=== PATIENT | male | born 1955 | race Caucasian/White ===

== ENCOUNTER 2017-07-11 18:21 | Emergency (ER) | payer OTHER ==
--- NOTE | 2017-07-11 19:30 | C.PDOC ---
History Of Present Illness The patient presents to the ED for evaluation of left knee pain which has been worsening over the last couple days. Patient denies fever, chills, direct trauma /injury to the affected area. Time Seen by Provider: 07/11/17 19:29 Chief Complaint (Nursing): Lower Extremity Problem/Injury History Per: Patient History/Exam Limitations: no limitations Onset/Duration Of Symptoms: Days (2) Current Symptoms Are (Timing): Worse Severity: Mild Pain Scale Rating Of: 3 Recent travel outside of the [place]: No Additional History Per: Patient - Knee Description Of Injury: denies: Fell, Struck With Object, Struck Against Object, Twisted, Laceration Past Medical History Reviewed: Historical Data, Nursing Documentation, Vital Signs Vital Signs: Last Vital Signs Temp 98.9 F 07/11/17 18:50 Pulse 70 07/11/17 18:50 Resp 18 07/11/17 18:50 BP 145/90 07/11/17 18:50 Pulse Ox 99 07/11/17 20:27 - Medical History PMH: HTN Surgical History: No Surg Hx Family History: States: Unknown Family Hx - Social History Hx Tobacco Use: No Hx Alcohol Use: No Hx Substance Use: No - Immunization History Hx Tetanus Toxoid Vaccination: No Hx Influenza Vaccination: No Hx Pneumococcal Vaccination: No Review Of Systems Constitutional: Negative for: Fever, Chills Cardiovascular: Negative for: Chest Pain, Palpitations Respiratory: Negative for: Cough, Shortness of Breath Musculoskeletal: Positive for: Other (left knee pain ) Skin: Negative for: Rash, Lesions, Jaundice, Bruising Neurological: Negative for: Weakness, Numbness Physical Exam - Physical Exam Appears: Non-toxic, No Acute Distress Skin: Warm, Dry Extremity: No Normal ROM (limited in left knee secondary to pain ), Tenderness ( left knee ), No Calf Tenderness, Capillary Refill (less than 2 seconds ), No Deformity, Swelling (left knee ), Other (left knee: generalized erythema with small areas of exudates present. positive ballottement) Extremity: Bilateral: Atraumatic Pulses: Left Dorsalis Pedis: Normal, Right Dorsalis Pedis: Normal Neurological/Psych: Oriented x3, Normal Speech, Normal Cognition Gait: Steady ED Course And Treatment - Laboratory Results Result Diagrams: 07/11/17 19:54 07/11/17 19:54 O2 Sat by Pulse Oximetry: 99 (on RA) Pulse Ox Interpretation: Normal Progress Note: labs ordered and reviewed. Patient received Cleocin IVP, Vancomycin IVP, and IV Fluids. Reevaluation Time: 23:09 Reassessment Condition: Improved Medical Decision Making Medical Decision Making: Upon provider reevaluation patient is feeling better, is medically stable, and requires no further treatment in the ED at this time. Patient will be discharged home with Rx for bactrim ds. Counseling was provided and all questions were answered regarding diagnosis and need for follow up with the referred clinic. There is agreement to discharge plan. Return if symptoms persist or worsen. Disposition Counseled Patient/Family Regarding: Studies Performed, Diagnosis, Need For Followup, Rx Given - Disposition Referrals: [facility] [Outside] [facility] [Outside] Disposition: HOME/ ROUTINE Disposition Time: 19:30 Condition: FAIR Additional Instructions: Please return if the redness of the knee spreads beyond the marked line Prescriptions: Sulfamethoxazole/Trimethoprim [Bactrim DS 800 mg-160 mg] 1 tab PO BID #14 tab Instructions: Cellulitis (DC) Forms: [employer] (Kinyarwanda) Print Language: STATELESS - Clinical Impression Clinical Impression: Cellulitis of knee, left - Scribe Statement The provider has reviewed the documentation as recorded by the Scribe (Essie Corrigan) Provider Attestation: All medical record entries made by the Scribe were at my direction and personally dictated by me. I have reviewed the chart and agree that the record accurately reflects my personal performance of the history, physical exam, medical decision making, and the department course for this patient. I have also personally directed, reviewed, and agree with the discharge instructions and disposition.
[2017-07-11] MEDS ORDERED: Sodium Chloride 0.9% 1,000 ML IV ONE (19:46)
[2017-07-11] MEDS ORDERED: Clindamycin 300 MG in Sodium Chloride 0.9% 50 ML IVPB STA (19:47)
[2017-07-11] MEDS ORDERED: Clindamycin 600mg/50ml NS 600 MG/50 ML BAG IVPB ONE (19:56)
[2017-07-11 19:57] LABS: BASO % 0.9 % (0.0-2.0); EOS # 0.3 K/uL (0.0-0.7); EOS % 7.6 % (0.0-4.0); HEMATOCRIT 41.6 % (35.0-51.0); LYMPH # 1.4 K/uL (1.0-4.3); LYMPH % 32.5 % (20.0-40.0); MEAN CELL VOLUME 81.1 fL (80.0-94.0); MEAN CORPUSCULAR HEMOGLOBIN 27.1 pg (27.0-31.0); MEAN CORPUSCULAR HGB CONC 33.4 g/dL (33.0-37.0); MEAN PLATELET VOLUME 9.2 fL (7.2-11.7); MONO # 0.6 K/uL (0.0-0.8); MONO % 13.3 % (0.0-10.0); RED CELL DISTRIBUTION WIDTH 13.9 % (11.5-14.5); WHITE BLOOD COUNT 4.4 K/uL (4.8-10.8)
[2017-07-11 20:10] LABS: CHLORIDE 104 mmol/L (98-107); SODIUM 140 mmol/L (132-148)
[2017-07-11 20:11] LABS: POTASSIUM 4.6 mmol/L (3.6-5.2)
[2017-07-11 20:13] LABS: ALB/GLOB RATIO 1.3 (1.0-2.1); ALKALINE PHOSPHATASE 59 U/L (38-126); AST/SGOT 44 U/L (17-59); BILIRUBIN,TOTAL 0.7 mg/dL (0.2-1.3); BLOOD UREA NITROGEN 15 mg/dL (9-20); CARBON DIOXIDE 23 mmol/L (22-30); GFR AFRICAN-AMERICAN > 60; TOTAL PROTEIN 7.8 g/dL (6.3-8.3)
[2017-07-11 20:14] LABS: ALT/SGPT 44 U/L (21-72); CALCIUM 8.9 mg/dl (8.6-10.4); GLUCOSE,RANDOM 72 mg/dL (75-110)
[2017-07-11 20:31] LABS: VENOUS BLOOD GAS BASE EXCESS 0.8 mmol/L (0.0-2.0); VENOUS BLOOD GAS PCO2 46 mmHg (40-60); VENOUS BLOOD PH 7.37 (7.32-7.43)
[2017-07-11] MEDS ORDERED: Vancomycin 1 GM 1 GM/250 ML BAG IVPB ONE (21:05)
[2017-07-11] MEDS ORDERED: Iohexol 300 100 ML IJ ONE (21:14)
[2017-07-11 21:41] LABS: RBC URINE < 1 /hpf (0-3); URINE BACTERIA RARE (<OCC); URINE BILIRUBIN NEGATIVE (NEGATIVE); URINE BLOOD NEGATIVE (NEGATIVE); URINE COLOR Yellow (YELLOW); URINE GLUCOSE (UA) NORMAL (Normal); URINE KETONE NEGATIVE (NEGATIVE); URINE LEUKOCYTE ESTERASE NEG Leu/uL (Negative); URINE PROTEIN NEGATIVE (NEGATIVE); URINE UROBILINOGEN NORMAL mg/dL (0.2-1.0); WBC URINE 2 /hpf (0-5)
--- NOTE | 2017-07-11 22:53 | CT ---
EXAM: CT Left Lower Extremity With Intravenous Contrast, Knee EXAM DATE/TIME: 07/11/2017 8:45 PM CLINICAL HISTORY: 61 years old, male; Signs and symptoms; Cellulitis and edema and swelling, leg or foot; Yes, it is localized; Knee; Left; Additional info: Left knee, swelling, possible abscess TECHNIQUE: Axial computed tomography images of the left knee with intravenous contrast. All CT scans at this facility use one or more dose reduction techniques, viz.: automated exposure control; ma/kV adjustment per patient size (including targeted exams where dose is matched to indication; i.e. head); or iterative reconstruction technique. Coronal and sagittal reformatted images were created and reviewed. CONTRAST: 100 mL of omnipaque 300 administered intravenously. COMPARISON: There are no prior studies for comparison. FINDINGS: Bones/joints: There is a small effusion in the left knee joint. There are no fractures or dislocations. There is no focal bone destruction. There are degenerative changes with small osteophytes. Soft tissues: There is skin thickening greatest anteriorly at the left knee. There is subcutaneous edema and phlegmon. There is no drainable abscess. There is no deep tissue infection. There is a popliteal cyst which measures 1.3 x 1.3 x 6 cm. Vasculature: Vascular structures are unremarkable. IMPRESSION: Cellulitis with subcutaneous edema and phlegmon, no drainable abscess; small popliteal cyst; degenerative change
[2017-07-11 23:18] VITALS: BP 169/92; PULSE 68; RESP 20; TEMP 98.2; O2SAT 95
== END 2017-07-11 23:19 | disposition home or self-care (01) ==
LOC: C.ER 18:21
DX: L03.116 Cellulitis of left lower limb (principal)
CPT/HCPCS: 73701; 80053; 81001; 82803; 85025; 87040; 96365; 96367; 99284; J7040; J7050; Q9967

== ENCOUNTER 2017-07-13 07:54 | Inpatient (IN) | payer MEDICAID, OTHER ==
[2017-07-13] MEDS ORDERED: Sodium Chloride 0.9% 1,000 ML IV ONE (08:58)
--- NOTE | 2017-07-13 09:23 | C.PDOC ---
History Of Present Illness 61 y/o male with PMHx of HTN presents to ED for re-evaluation of left knee redness, swelling, blisters gradually developed for past week. Pt states that he fell 7 days ago, scraping his left knee. Pt was seen here on 07/11/17 due to same complaints. Pt sts , received Rx: Bactrim without improvement in sx. Pt sts , noted blisters spread over Left knee. Pt admits, able to bear weight/ ambulate without difficulty. Pt denies fever, chills, direct trauma/injury to affected area, headache, dizziness, CP, SOB, B/L calf pain, denies deformity, weakness, sensory or vascular deficits to B/L LEs, denies any other associated symptoms at this time. Ambulate to ED for evaluation, not in any apparent distress. Time Seen by Provider: 07/13/17 08:29 Chief Complaint (Nursing): Abnormal Skin Integrity History Per: Patient History/Exam Limitations: no limitations Onset/Duration Of Symptoms: Days Current Symptoms Are (Timing): Still Present Location Of Injury: Left: Knee, Anterior: Knee Quality Of Symptoms: Painful, Swollen Recent travel outside of the [place]: No Additional History Per: Family Past Medical History Reviewed: Historical Data, Nursing Documentation, Vital Signs Vital Signs: Last Vital Signs Temp 97.8 F 07/17/17 07:00 Pulse 61 07/17/17 07:00 Resp 20 07/17/17 07:00 BP 131/86 07/17/17 07:00 Pulse Ox 98 07/17/17 07:00 - Medical History PMH: HTN Family History: States: Unknown Family Hx - Social History Hx Tobacco Use: No Hx Alcohol Use: No Hx Substance Use: No - Immunization History Hx Tetanus Toxoid Vaccination: No Hx Influenza Vaccination: No Hx Pneumococcal Vaccination: No Review Of Systems Except As Marked, All Systems Reviewed And Found Negative. Constitutional: Negative for: Fever, Chills Cardiovascular: Negative for: Chest Pain, Palpitations Respiratory: Negative for: Cough, Shortness of Breath Gastrointestinal: Negative for: Nausea, Vomiting, Abdominal Pain Musculoskeletal: Positive for: Leg Pain (left knee pain) Skin: Positive for: Other (blisters to left knee). Negative for: Rash Neurological: Negative for: Weakness, Numbness, Headache, Dizziness Physical Exam - Physical Exam Appears: Non-toxic, No Acute Distress Skin: Warm, Dry, Other (pustule with yellow drainge over the anterior aspect of left knee that is warm to touch, diffuse erythema) Head: Normacephalic Eye(s): bilateral: PERRL Nose: No Flaring Oral Mucosa: Moist, No Drooling Throat: No Erythema Neck: Supple Chest: Symmetrical Cardiovascular: Rhythm Regular, No Murmur Respiratory: No Decreased Breath Sounds, No Accessory Muscle Use, No Rales, No Rhonchi, No Stridor, No Wheezing Gastrointestinal/Abdominal: Soft, No Tenderness, No Distention, No Guarding Back: No CVA Tenderness Extremity: Normal ROM (FROM of Left knee without difficulty.), Tenderness (mild over anterior aspect of left knee), No Calf Tenderness (B/L), Capillary Refill ( <2 sec.), No Deformity Pulses: Left Dorsalis Pedis: Normal, Right Dorsalis Pedis: Normal Neurological/Psych: Oriented x3, Normal Speech, Normal Motor, Normal Sensation, Normal Reflexes ED Course And Treatment - Laboratory Results Result Diagrams: 07/17/17 06:53 07/17/17 06:53 O2 Sat by Pulse Oximetry: 99 (on RA) Pulse Ox Interpretation: Normal - Other Rad Left knee X-Ray: Interpreted by Me, Viewed By Me Interpretation: (+) mild DJD, no acute fx or dislocation Progress Note: Blood work, UA, left knee x-ray ordered and reviewed. Blood and urine culture ordered. Pt was given Vancomycin IVPB. Wound cx ( aspirate one of knee pustule) sent to lab. On re-eval, pt remained without changed. Blood work review, imaging (+) Mild DJD, no acute fx or dislocation, no effusion. Pt fell outpt treatment for knee cellulitis. Case discussed with ED attending and OBS admission recommend with Dx: Knee cellulitis r/o septic joint. Case discussed with hospitalist and admission arranged w/ortho consult of . 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 - Scribe Statement The provider has reviewed the documentation as recorded by the Scribe Clark Corrigan All medical record entries made by the Scribe were at my direction and personally dictated by me. I have reviewed the chart and agree that the record accurately reflects my personal performance of the history, physical exam, medical decision making, and the department course for this patient. I have also personally directed, reviewed, and agree with the discharge instructions and disposition.
[2017-07-13 10:11] LABS: BASO # 0.1 K/uL (0.0-0.2); BASO % 1.1 % (0.0-2.0); EOS # 0.3 K/uL (0.0-0.7); EOS % 7.1 % (0.0-4.0); HEMATOCRIT 45.7 % (35.0-51.0); LYMPH # 1.3 K/uL (1.0-4.3); LYMPH % 28.6 % (20.0-40.0); MEAN CELL VOLUME 80.6 fL (80.0-94.0); MEAN CORPUSCULAR HEMOGLOBIN 27.1 pg (27.0-31.0); MEAN CORPUSCULAR HGB CONC 33.6 g/dL (33.0-37.0); MEAN PLATELET VOLUME 8.4 fL (7.2-11.7); MONO # 0.5 K/uL (0.0-0.8); MONO % 12.1 % (0.0-10.0); NRBC % 0.1 % (0.0-2.0); RED CELL DISTRIBUTION WIDTH 14.2 % (11.5-14.5); WHITE BLOOD COUNT 4.4 K/uL (4.8-10.8)
[2017-07-13 10:22] LABS: CHLORIDE 101 mmol/L (98-107); POTASSIUM 4.5 mmol/L (3.6-5.2); SODIUM 140 mmol/L (132-148)
[2017-07-13 10:24] LABS: GFR AFRICAN-AMERICAN > 60
[2017-07-13 10:25] LABS: BLOOD UREA NITROGEN 12 mg/dL (9-20); CALCIUM 9.7 mg/dl (8.6-10.4); CARBON DIOXIDE 21 mmol/L (22-30); GLUCOSE,RANDOM 79 mg/dL (75-110)
[2017-07-13 10:39] LABS: URINE BILIRUBIN NEGATIVE (NEGATIVE); URINE BLOOD NEGATIVE (NEGATIVE); URINE COLOR Yellow (YELLOW); URINE GLUCOSE (UA) NORMAL (Normal); URINE KETONE NEGATIVE (NEGATIVE); URINE LEUKOCYTE ESTERASE NEG Leu/uL (Negative); URINE PROTEIN NEGATIVE (NEGATIVE); URINE UROBILINOGEN NORMAL mg/dL (0.2-1.0); WBC URINE < 1 /hpf (0-5)
[2017-07-13] MEDS ORDERED: Sodium Chloride 0.9% 1,000 ML ONE (10:44)
[2017-07-13] MEDS ORDERED: Vancomycin 1 GM 1 GM/250 ML BAG IVPB ONE (10:45)
--- NOTE | 2017-07-13 11:33 | RAD ---
Left knee three views History: Pain. Comparison: None available. Findings: Prominent lobulated and radiopaque soft tissue densities and or lesions seen projecting over the soft tissues at the level of the patella and extending superiorly. Moderate lateral compartment joint space narrowing of the femorotibial joint space with subchondral sclerosis and osteophytosis. Spurring of the tibial spines. Mild patellofemoral compartment joint space narrowing. Small suprapatellar joint effusion. Impression: Prominent lobulated and radiopaque soft tissue densities and or lesions seen projecting over the soft tissues at the level of the patella and extending superiorly. Clinical correlation and or correlation with contrast-enhanced MRI and or soft tissue biopsy may be helpful if clinically indicated. Moderate lateral compartment joint space narrowing of the femorotibial joint space with subchondral sclerosis and osteophytosis. Spurring of the tibial spines. Mild patellofemoral compartment joint space narrowing. Small suprapatellar joint effusion. Correlation with MRI may be helpful if clinically indicated.
[2017-07-13] MEDS ORDERED: Aztreonam 2 GM in Sodium Chloride 0.9% 100 ML IVPB SCH (13:45)
[2017-07-13] MEDS: Aztreonam 2 GM in Sodium Chloride 0.9% 100 ML IVPB SCH ×2 (14:54→22:05)
--- NOTE | 2017-07-13 15:19 | CP.PCM.HP ---
<Marck Mckeon - Last Filed: 07/13/17 15:33> History of Present Illness - History of Present Illness History of Present Illness: PGY1 Medicine Note for Dr. Corral 61 year old male with a PMH of HTN presented to the ED with increasing swelling in his left knee over the past week. The patient states that he tripped while walked about a week ago. He states he landed on his left knee in a pile of dirt. He denied any pain or any openings on the skin. He reports over the next 3 days he started to notice some swelling and redness around his left knee. He came to the ED and was sent home with a prescription for Bactrim. He reports taking his medication as directed but the swelling and redness has worsened. He states that he started to have blisters form over his knee yesterday. He decided to come back because of the formation of the blisters. He says he does have mild pain with walking now, but is in no pain at rest. He states he has no other complaints at this time. Denies f/c, n/v, d/c, sob, cp, headaches or diaphoresis. PMH: HTN (no medications) PSH: denies Family: denies Social: denies ever smoking, alcohol, illicit drug use Allergies: Penicillin (itching) Present on Admission - Present on Admission Any Indicators Present on Admission: No Review of Systems - Constitutional Constitutional: absent: Chills, Excessive Sweating, Fever, Headache, Lethargy, Malaise - EENT Eyes: absent: Change in Vision Nose/Mouth/Throat: absent: Nasal Congestion, Nasal Discharge, Neck Pain - Cardiovascular Cardiovascular: absent: Chest Pain, Diaphoresis, Edema - Respiratory Respiratory: absent: Cough, Dyspnea - Gastrointestinal Gastrointestinal: absent: Abdominal Pain, Change in Bowel Habits, Constipation, Diarrhea, Nausea, Vomiting - Musculoskeletal Musculoskeletal: Abnormal Gait (slight limp due to left knee pain), Joint Swelling (Left knee). absent: Numbness, Radiating Pain into Limb, Tingling - Integumentary Integumentary: Erythema (left knee), Swelling (left knee), Other (blisters on left knee) - Neurological Neurological: absent: Radicular Pain, Weakness - Endocrine Endocrine: absent: Excessive Sweating Past Patient History - Infectious Disease Hx of Infectious Diseases: None - Past Medical History & Family History Past Medical History?: Yes - Past Social History Smoking Status: Never Smoked - CARDIAC Hx Hypertension: Yes - PULMONARY Hx Respiratory Disorders: No - NEUROLOGICAL Hx Neurological Disorder: No - HEENT Hx HEENT Problems: No - RENAL Hx Chronic Kidney Disease: No - ENDOCRINE/METABOLIC Hx Endocrine Disorders: No - HEMATOLOGICAL/ONCOLOGICAL Hx Blood Disorders: No - INTEGUMENTARY Hx Dermatological Problems: No - MUSCULOSKELETAL/RHEUMATOLOGICAL Hx Musculoskeletal Disorders: No Hx Falls: No - GASTROINTESTINAL Hx Gastrointestinal Disorders: No - GENITOURINARY/GYNECOLOGICAL Hx Genitourinary Disorders: No - PSYCHIATRIC Hx Psychophysiologic Disorder: No Hx Substance Use: No - SURGICAL HISTORY Hx Surgeries: No - ANESTHESIA Hx Anesthesia: No Hx Anesthesia Reactions: No Hx Malignant Hyperthermia: No Has any member of the family had a problem w/ anesthesia?: No Meds Allergies/Adverse Reactions: Allergies Allergy/AdvReac Type Severity Reaction Status Date / Time penicillin G Allergy Verified 07/11/17 20:08 Physical Exam - Constitutional Appears: Well, Non-toxic, No Acute Distress, Younger Than Stated Age - Head Exam Head Exam: ATRAUMATIC, NORMOCEPHALIC - Eye Exam Eye Exam: EOMI, Normal appearance. absent: Scleral icterus - ENT Exam ENT Exam: Mucous Membranes Moist - Neck Exam Neck exam: Positive for: Full Rom. Negative for: Meningismus, Tenderness - Respiratory Exam Respiratory Exam: Clear to Auscultation Bilateral, NORMAL BREATHING PATTERN. absent: Accessory Muscle Use, Respiratory Distress - Cardiovascular Exam Cardiovascular Exam: REGULAR RHYTHM, +S1, +S2 - GI/Abdominal Exam GI & Abdominal Exam: Normal Bowel Sounds, Soft. absent: Firm, Guarding, Rigid, Tenderness - Extremities Exam Extremities exam: Positive for: joint swelling (Left knee), normal capillary refill, pedal pulses present. Negative for: calf tenderness, pedal edema, tenderness Additional comments: Swelling, erythema and blister formation located over the left knee. - Neurological Exam Neurological exam: Alert, Oriented x3 - Psychiatric Exam Psychiatric exam: Normal Affect, Normal Mood - Skin Skin Exam: Erythema (left knee), Vesicles (left knee) Results - Vital Signs Recent Vital Signs: Last Vital Signs Temp 97.9 F 07/13/17 11:33 Pulse 56 L 07/13/17 11:33 Resp 14 07/13/17 11:33 BP 161/89 H 07/13/17 11:33 Pulse Ox 100 07/13/17 11:33 - Labs Result Diagrams: 07/13/17 10:08 07/13/17 10:08 Labs: Laboratory Results - last 24 hr 07/13/17 07/13/17 07/13/17 10:08 10:08 10:32 WBC 4.4 L RBC 5.68 Hgb 15.4 Hct 45.7 MCV 80.6 MCH 27.1 MCHC 33.6 RDW 14.2 Plt Count 252 MPV 8.4 Neut % (Auto) 51.1 Lymph % (Auto) 28.6 Crook % (Auto) 12.1 H Eos % (Auto) 7.1 H Baso % (Auto) 1.1 Neut # 2.2 Lymph # 1.3 Crook # 0.5 Eos # 0.3 Baso # 0.1 Sodium 140 Potassium 4.5 Chloride 101 Carbon Dioxide 21 L Anion Gap 23 H BUN 12 Creatinine 0.9 Est GFR ( Amer) > 60 Est GFR (Non-Af Amer) > 60 Random Glucose 79 Calcium 9.7 Urine Color Yellow Urine Clarity Clear Urine pH 5.0 Ur Specific [place] 1.015 Urine Protein Negative Urine Glucose (UA) Normal Urine Ketones Negative Urine Blood Negative Urine Nitrate Negative Urine Bilirubin Negative Urine Urobilinogen Normal Ur Leukocyte Esterase Neg Urine WBC (Auto) < 1 Ur Squamous Epith Cells < 1 Assessment & Plan - Assessment and Plan (Free Text) Assessment: Cellulitis of Left Knee - Left Knee X-Ray: Prominent lobulated and radiopaque soft tissue densities and or lesions seen projecting over the soft tissues at the level of the patella and extending superiorly. Clinical correlation and or correlation with contrast-enhanced MRI and or soft tissue biopsy may be helpful if clinically indicated. Moderate lateral compartment joint space narrowing of the femorotibial joint space with subchondral sclerosis and osteophytosis. Spurring of the tibial spines. Mild patellofemoral compartment joint space narrowing. Small suprapatellar joint effusion. Correlation with MRI may be helpful if clinically indicated. - Ortho consulted, Dr. Francois Friend, to rule out septic joint - Spoke with Dr. Francois Friend, does not believe the swelling is located within the joint. Believes this is located in the skin. Does not believe this is a septic joint. - Started Vanco 1g IVPB Q12H - Started Zazctam 2gm IVPB Q8H - UA - negative - f/u Blood and Wound cultures Hx of HTN - Started on Norvasc 5 mg PO daily Prophylactic Care - Started Lovenox 40mg SC daily - Pepcid 20mg PO daily - Pt is to ambulate as tolerated Case discussed with Dr. Shayna Mckeon PGY1 <Murali Corral - Last Filed: 07/13/17 17:25> Results - Vital Signs Recent Vital Signs: Last Vital Signs Temp 97.2 F L 07/13/17 16:49 Pulse 78 07/13/17 16:49 Resp 20 07/13/17 16:49 BP 145/83 07/13/17 16:49 Pulse Ox 98 07/13/17 16:49 - Labs Result Diagrams: 07/13/17 10:08 07/13/17 10:08 Labs: Laboratory Results - last 24 hr 07/13/17 07/13/17 07/13/17 10:08 10:08 10:32 WBC 4.4 L RBC 5.68 Hgb 15.4 Hct 45.7 MCV 80.6 MCH 27.1 MCHC 33.6 RDW 14.2 Plt Count 252 MPV 8.4 Neut % (Auto) 51.1 Lymph % (Auto) 28.6 [place]ok % (Auto) 12.1 H Eos % (Auto) 7.1 H Baso % (Auto) 1.1 Neut # 2.2 Lymph # 1.3 Crook # 0.5 Eos # 0.3 Baso # 0.1 Sodium 140 Potassium 4.5 Chloride 101 Carbon Dioxide 21 L Anion Gap 23 H BUN 12 Creatinine 0.9 Est GFR ( Amer) > 60 Est GFR (Non-Af Amer) > 60 Random Glucose 79 Calcium 9.7 Urine Color Yellow Urine Clarity Clear Urine pH 5.0 Ur Specific [place] 1.015 Urine Protein Negative Urine Glucose (UA) Normal Urine Ketones Negative Urine Blood Negative Urine Nitrate Negative Urine Bilirubin Negative Urine Urobilinogen Normal Ur Leukocyte Esterase Neg Urine WBC (Auto) < 1 Ur Squamous Epith Cells < 1 Attending/Attestation - Attestation I have personally seen and examined this patient.: Yes I have fully participated in the care of the patient.: Yes I have reviewed all pertinent clinical information: Yes Notes (Text): 07/13/17 17:15 Patient was seen and examined at bedside with the resident I discussed the plan of care with the resident Orthopedic evaluation seen and appreciated. No orthopedic intervention suggested. We will start the treatment for cellulitis of the knee. I discussed the plan of care with the resident I agree with the history and physical and assessment/plan documented.
[2017-07-14] MEDS: Aztreonam 2 GM in Sodium Chloride 0.9% 100 ML IVPB SCH ×3 (06:14→22:03)
[2017-07-14 06:32] LABS: BASO % 0.1 % (0.0-2.0); HEMATOCRIT 43.8 % (35.0-51.0); LYMPH % 7.9 % (20.0-40.0); MEAN CELL VOLUME 80.6 fL (80.0-94.0); MEAN CORPUSCULAR HGB CONC 33.5 g/dL (33.0-37.0); MEAN PLATELET VOLUME 8.7 fL (7.2-11.7); MONO # 0.3 K/uL (0.0-0.8); MONO % 2.4 % (0.0-10.0); PLATELET COUNT 265 K/uL (130-400); RED CELL DISTRIBUTION WIDTH 14.2 % (11.5-14.5); WHITE BLOOD COUNT 12.7 K/uL (4.8-10.8)
[2017-07-14 06:39] LABS: ALB/GLOB RATIO 1.4 (1.0-2.1); ALKALINE PHOSPHATASE 55 U/L (38-126); ALT/SGPT 39 U/L (21-72); AST/SGOT 25 U/L (17-59); BILIRUBIN,TOTAL 0.3 mg/dL (0.2-1.3); BLOOD UREA NITROGEN 11 mg/dL (9-20); CALCIUM 10.1 mg/dl (8.6-10.4); CARBON DIOXIDE 21 mmol/L (22-30); CHLORIDE 105 mmol/L (98-107); GFR AFRICAN-AMERICAN > 60; GLUCOSE,RANDOM 126 mg/dL (75-110); POTASSIUM 4.4 mmol/L (3.6-5.2); SODIUM 136 mmol/L (132-148)
[2017-07-14 08:04] LABS: NEUTROPHIL 87 % (50-75); TOTAL CELLS COUNTED 100
[2017-07-14] MEDS: Enoxaparin 40 mg Syringe SC SCH (09:30)
[2017-07-14 15:44] VITALS: RESP 20
--- NOTE | 2017-07-14 17:25 | CP.PCM.PN ---
<Marck Mckeon - Last Filed: 07/14/17 17:33> Subjective - Date & Time of Evaluation Date of Evaluation: 07/14/17 Time of Evaluation: 07:00 - Subjective Subjective: PGY1 Medicine Note for Dr. Corral Patient seen and examined at bedside this morning. Patient says he currently has no pain at this time. Denies f/c, n/v, d/c, headaches, sob, cp, numbness or tingling. He states he has been able to get up and walk around with decreased pain in his left knee. Medical student used to translate. Objective - Vital Signs/Intake and Output Vital Signs (last 24 hours): Temp Pulse Resp BP Pulse Ox 97.1 F L 119 H 20 144/86 96 07/14/17 15:42 07/14/17 15:42 07/14/17 15:42 07/14/17 15:42 07/14/17 15:42 Intake and Output: 07/14/17 07/14/17 06:59 18:59 Intake Total 810 Balance 810 - Medications Medications: Current Medications Acetaminophen (Tylenol 325mg Tab) 650 mg PO Q6 PRN PRN Reason: pain/fever Amlodipine Besylate (Norvasc) 5 mg PO DAILY [facility] Last Admin: 07/14/17 09:30 Dose: 5 mg Enoxaparin Sodium (Lovenox) 40 mg SC DAILY [facility] Last Admin: 07/14/17 09:30 Dose: 40 mg Famotidine (Pepcid) 20 mg PO DAILY [facility] Last Admin: 07/14/17 09:30 Dose: 20 mg Vancomycin HCl 1,000 mg/ (Sodium Chloride) 250 mls @ 166.6 mls/hr IVPB Q12H [facility] Last Admin: 07/14/17 12:33 Dose: 166.6 mls/hr Aztreonam 2 gm/ Sodium (Chloride) 100 mls @ 200 mls/hr IVPB Q8H [facility] Last Admin: 07/14/17 14:59 Dose: 200 mls/hr - Labs Labs: 07/14/17 06:01 07/14/17 06:01 - Constitutional Appears: Non-toxic, No Acute Distress - Head Exam Head Exam: ATRAUMATIC, NORMOCEPHALIC - Eye Exam Eye Exam: EOMI, Normal appearance - ENT Exam ENT Exam: Mucous Membranes Moist - Respiratory Exam Respiratory Exam: Clear to Ausculation Bilateral, NORMAL BREATHING PATTERN. absent: Accessory Muscle Use, Respiratory Distress - Cardiovascular Exam Cardiovascular Exam: REGULAR RHYTHM, +S1, +S2. absent: JVD - GI/Abdominal Exam GI & Abdominal Exam: Soft, Normal Bowel Sounds. absent: Distended, Guarding, Rigid, Tenderness - Extremities Exam Extremities Exam: Joint Swelling (left knee). absent: Pedal Edema, Tenderness Additional comments: Outlined erythema boarder. multiple blister formations on top of left knee. - Neurological Exam Neurological Exam: Alert, Awake, Normal Gait, Oriented x3 - Psychiatric Exam Psychiatric exam: Normal Affect, Normal Mood - Skin Additional comments: Erythema with blister formation surrounding left knee. Assessment and Plan - Assessment and Plan (Free Text) Plan: Cellulitis of Left Knee - Left Knee X-Ray (07/13/17): Prominent lobulated and radiopaque soft tissue densities and or lesions seen projecting over the soft tissues at the level of the patella and extending superiorly. Clinical correlation and or correlation with contrast-enhanced MRI and or soft tissue biopsy may be helpful if clinically indicated. Moderate lateral compartment joint space narrowing of the femorotibial joint space with subchondral sclerosis and osteophytosis. Spurring of the tibial spines. Mild patellofemoral compartment joint space narrowing. Small suprapatellar joint effusion. Correlation with MRI may be helpful if clinically indicated. - Ortho consulted, Dr. Francois Friend, to rule out septic joint - (07/13/17) Spoke with Dr. Francois Friend, does not believe the swelling is located within the joint. Believes this is located in the skin. Does not believe this is a septic joint. - Infectious Disease consulted, Dr. Daley - follow up recs - Cont. Vanco 1g IVPB Q12H - Cont. Zazctam 2gm IVPB Q8H - UA - negative - Blood - no growth at 24 hours - Wound cultures - no growth at 24 hours Hx of HTN - Started on Norvasc 5 mg PO daily Prophylactic Care - Lovenox 40mg SC daily - Pepcid 20mg PO daily - Pt is to ambulate as tolerated Case discussed with Dr. Shayna Mckeon PGY1 <Murali Corral - Last Filed: 07/27/17 21:58> Objective - Vital Signs/Intake and Output Vital Signs (last 24 hours): Temp Pulse Resp BP Pulse Ox 98 F 78 20 140/80 97 07/20/17 15:00 07/20/17 15:00 07/20/17 15:00 07/20/17 15:00 07/20/17 15:00 - Labs Labs: 07/20/17 06:11 07/20/17 06:11 Attending/Attestation - Attestation I have personally seen and examined this patient.: Yes I have fully participated in the care of the patient.: Yes I have reviewed all pertinent clinical information, including history, physical exam and plan: Yes Notes (Text): 07/27/17 21:58 patient was seen and examined at bedside with the resident I agree with the assessment and plan documented
[2017-07-15] MEDS: Aztreonam 2 GM in Sodium Chloride 0.9% 100 ML IVPB SCH ×3 (06:19→22:25)
[2017-07-15 06:26] LABS: BASO % 0.3 % (0.0-2.0); EOS # 0.6 K/uL (0.0-0.7); EOS % 6.6 % (0.0-4.0); HEMATOCRIT 41.1 % (35.0-51.0); LYMPH # 2.4 K/uL (1.0-4.3); LYMPH % 24.7 % (20.0-40.0); MEAN CELL VOLUME 80.9 fL (80.0-94.0); MEAN CORPUSCULAR HEMOGLOBIN 26.9 pg (27.0-31.0); MEAN CORPUSCULAR HGB CONC 33.3 g/dL (33.0-37.0); MEAN PLATELET VOLUME 8.5 fL (7.2-11.7); MONO # 0.7 K/uL (0.0-0.8); MONO % 7.4 % (0.0-10.0); RED CELL DISTRIBUTION WIDTH 14.1 % (11.5-14.5); WHITE BLOOD COUNT 9.6 K/uL (4.8-10.8)
[2017-07-15 06:44] LABS: ALB/GLOB RATIO 1.4 (1.0-2.1); ALKALINE PHOSPHATASE 50 U/L (38-126); ALT/SGPT 63 U/L (21-72); AST/SGOT 41 U/L (17-59); BILIRUBIN,TOTAL 0.3 mg/dL (0.2-1.3); BLOOD UREA NITROGEN 14 mg/dL (9-20); CALCIUM 9.6 mg/dl (8.6-10.4); CARBON DIOXIDE 25 mmol/L (22-30); CHLORIDE 102 mmol/L (98-107); GFR AFRICAN-AMERICAN > 60; GLUCOSE,RANDOM 87 mg/dL (75-110); SODIUM 138 mmol/L (132-148); TOTAL PROTEIN 6.6 g/dL (6.3-8.3)
[2017-07-15 06:46] LABS: POTASSIUM 4.5 mmol/L (3.6-5.2)
[2017-07-15] MEDS: Enoxaparin 40 mg Syringe SC SCH (09:51)
--- NOTE | 2017-07-15 14:27 | CP.PCM.CON ---
History of Present Illness - History of Present Illness History of Present Illness: admitted with left knee cellulitis failed out pt rx hx allergy PCN Review of Systems - Review of Systems All systems: reviewed and no additional remarkable complaints except Past Patient History - Infectious Disease Hx of Infectious Diseases: None - Past Medical History & Family History Past Medical History?: Yes - Past Social History Smoking Status: Never Smoked - CARDIAC Hx Hypertension: Yes - PULMONARY Hx Respiratory Disorders: No - NEUROLOGICAL Hx Neurological Disorder: No - HEENT Hx HEENT Problems: No - RENAL Hx Chronic Kidney Disease: No - ENDOCRINE/METABOLIC Hx Endocrine Disorders: No - HEMATOLOGICAL/ONCOLOGICAL Hx Blood Disorders: No - INTEGUMENTARY Hx Dermatological Problems: No - MUSCULOSKELETAL/RHEUMATOLOGICAL Hx Musculoskeletal Disorders: No Hx Falls: No - GASTROINTESTINAL Hx Gastrointestinal Disorders: No - GENITOURINARY/GYNECOLOGICAL Hx Genitourinary Disorders: No - PSYCHIATRIC Hx Psychophysiologic Disorder: No Hx Substance Use: No - SURGICAL HISTORY Hx Surgeries: No - ANESTHESIA Hx Anesthesia: No Hx Anesthesia Reactions: No Hx Malignant Hyperthermia: No Has any member of the family had a problem w/ anesthesia?: No Meds Allergies/Adverse Reactions: Allergies Allergy/AdvReac Type Severity Reaction Status Date / Time penicillin G Allergy Verified 07/11/17 20:08 - Medications Medications: Current Medications Acetaminophen (Tylenol 325mg Tab) 650 mg PO Q6 PRN PRN Reason: pain/fever Amlodipine Besylate (Norvasc) 5 mg PO DAILY [facility] Last Admin: 07/15/17 09:52 Dose: 5 mg Enoxaparin Sodium (Lovenox) 40 mg SC DAILY [facility] Last Admin: 07/15/17 09:51 Dose: 40 mg Famotidine (Pepcid) 20 mg PO DAILY [facility] Last Admin: 07/15/17 09:52 Dose: 20 mg Vancomycin HCl 1,000 mg/ (Sodium Chloride) 250 mls @ 166.6 mls/hr IVPB Q12H [facility] Last Admin: 07/15/17 11:00 Dose: 166.6 mls/hr Aztreonam 2 gm/ Sodium (Chloride) 100 mls @ 200 mls/hr IVPB Q8H [facility] Last Admin: 07/15/17 06:19 Dose: 200 mls/hr Physical Exam - Constitutional Appears: Non-toxic, Chronically Ill - Head Exam Head Exam: NORMOCEPHALIC - Eye Exam Eye Exam: PERRL. absent: Scleral icterus Pupil Exam: absent: NORMAL ACCOMODATION - ENT Exam ENT Exam: Mucous Membranes Dry, Normal External Ear Exam, Normal Oropharynx - Neck Exam Neck exam: Negative for: Lymphadenopathy - Respiratory Exam Respiratory Exam: Decreased Breath Sounds, Clear to Auscultation Bilateral - Cardiovascular Exam Cardiovascular Exam: REGULAR RHYTHM, +S1, +S2 - GI/Abdominal Exam GI & Abdominal Exam: Diminished Bowel Sounds, Soft. absent: Tenderness - Rectal Exam Rectal Exam: Deferred - Exam Exam: NORMAL INSPECTION - Extremities Exam Extremities exam: Positive for: pedal pulses present. Negative for: calf tenderness, pedal edema, tenderness Additional comments: + celllulitis knee - Back Exam Back exam: absent: CVA tenderness (L), CVA tenderness (R) - Neurological Exam Neurological exam: Alert, CN II-XII Intact, Oriented x3, Reflexes Normal - Psychiatric Exam Psychiatric exam: Normal Mood - Skin Skin Exam: Dry Results - Vital Signs Recent Vital Signs: Last Vital Signs Temp 97.3 F L 07/15/17 07:00 Pulse 59 L 07/15/17 07:00 Resp 20 07/15/17 07:00 BP 132/85 07/15/17 07:00 Pulse Ox 97 07/15/17 07:00 - Labs Result Diagrams: 07/15/17 06:11 07/15/17 06:11 Labs: Laboratory Results - last 24 hr 07/15/17 07/15/17 06:11 06:11 WBC 9.6 RBC 5.08 Hgb 13.7 Hct 41.1 MCV 80.9 MCH 26.9 L MCHC 33.3 RDW 14.1 Plt Count 257 MPV 8.5 Neut % (Auto) 61.0 Lymph % (Auto) 24.7 [place] % (Auto) 7.4 Eos % (Auto) 6.6 H Baso % (Auto) 0.3 Neut # 5.9 Lymph # 2.4 [place] # 0.7 Eos # 0.6 Baso # 0.0 Sodium 138 Potassium 4.5 Chloride 102 Carbon Dioxide 25 Anion Gap 16 BUN 14 Creatinine 1.0 Est GFR ( Amer) > 60 Est GFR (Non-Af Amer) > 60 Random Glucose 87 Calcium 9.6 Total Bilirubin 0.3 AST 41 ALT 63 Alkaline Phosphatase 50 Total Protein 6.6 Albumin 3.8 Globulin 2.8 Albumin/Globulin Ratio 1.4 Assessment & Plan (1) Cellulitis of knee, left Status: Acute - Assessment and Plan (Free Text) Assessment: no evidence of septic arthritis consider IV then PO rx await ortho eval
--- NOTE | 2017-07-15 15:13 | CP.PCM.PN ---
<Marck Mckeon - Last Filed: 07/15/17 15:08> Subjective - Date & Time of Evaluation Date of Evaluation: 07/15/17 Time of Evaluation: 07:40 - Subjective Subjective: PGY1 Medicine Note for Dr. Corral Patient seen and examined this morning at bedside. Patient was awake and in good spirits. He is hopeful that he can go home today because he says he feels much better. He is not having any pain in his knee currently. He states he has no complaints at this time. Denies f/c, n/v, d/c, sob, cp, headache, numbness or tingling. He has able to walk without pain now. Objective - Vital Signs/Intake and Output Vital Signs (last 24 hours): Temp Pulse Resp BP Pulse Ox 97.3 F L 59 L 20 132/85 97 07/15/17 07:00 07/15/17 07:00 07/15/17 07:00 07/15/17 07:00 07/15/17 07:00 Intake and Output: 07/15/17 07/15/17 06:59 18:59 Intake Total 590 550 Balance 590 550 - Medications Medications: Current Medications Acetaminophen (Tylenol 325mg Tab) 650 mg PO Q6 PRN PRN Reason: pain/fever Amlodipine Besylate (Norvasc) 5 mg PO DAILY [facility] Last Admin: 07/15/17 09:52 Dose: 5 mg Enoxaparin Sodium (Lovenox) 40 mg SC DAILY [facility] Last Admin: 07/15/17 09:51 Dose: 40 mg Famotidine (Pepcid) 20 mg PO DAILY [facility] Last Admin: 07/15/17 09:52 Dose: 20 mg Vancomycin HCl 1,000 mg/ (Sodium Chloride) 250 mls @ 166.6 mls/hr IVPB Q12H [facility] Last Admin: 07/15/17 11:00 Dose: 166.6 mls/hr Aztreonam 2 gm/ Sodium (Chloride) 100 mls @ 200 mls/hr IVPB Q8H [facility] Last Admin: 07/15/17 06:19 Dose: 200 mls/hr - Labs Labs: 07/15/17 06:11 07/15/17 06:11 - Constitutional Appears: Non-toxic, No Acute Distress - Head Exam Head Exam: ATRAUMATIC, NORMOCEPHALIC - Eye Exam Eye Exam: EOMI, Normal appearance - ENT Exam ENT Exam: Mucous Membranes Moist - Respiratory Exam Respiratory Exam: NORMAL BREATHING PATTERN. absent: Accessory Muscle Use, Respiratory Distress - Cardiovascular Exam Cardiovascular Exam: REGULAR RHYTHM, +S1, +S2 - GI/Abdominal Exam GI & Abdominal Exam: Soft, Normal Bowel Sounds. absent: Distended, Firm, Guarding, Rigid, Tenderness - Extremities Exam Extremities Exam: absent: Calf Tenderness, Pedal Edema, Tenderness Additional comments: Blisters are decreased in size. Erythema boarders are stable, have not increased or decreased in size compared to outline boarder drawn on skin. There is still swelling in the left knee but it has decreased in size. not tender to palpation. increased ROM compared to yesterday. - Neurological Exam Neurological Exam: Alert, Awake, Normal Gait, Oriented x3 - Psychiatric Exam Psychiatric exam: Normal Affect, Normal Mood - Skin Skin Exam: Dry, Erythema (left knee), Vesicles (blister formations, decreased in size compared to yesterday on left knee), Warm Assessment and Plan - Assessment and Plan (Free Text) Assessment: Cellulitis of Left Knee - improving, continue current treatment regiment. - Left Knee X-Ray (07/13/17): Prominent lobulated and radiopaque soft tissue densities and or lesions seen projecting over the soft tissues at the level of the patella and extending superiorly. Clinical correlation and or correlation with contrast-enhanced MRI and or soft tissue biopsy may be helpful if clinically indicated. Moderate lateral compartment joint space narrowing of the femorotibial joint space with subchondral sclerosis and osteophytosis. Spurring of the tibial spines. Mild patellofemoral compartment joint space narrowing. Small suprapatellar joint effusion. Correlation with MRI may be helpful if clinically indicated. - Ortho consulted, Dr. Francois Friend, to rule out septic joint - (07/13/17) Spoke with Dr. Francois Friend, does not believe the swelling is located within the joint. Believes this is located in the skin. Does not believe this is a septic joint. - Infectious Disease consulted, Dr. Daley - follow up recs - Cont. Vanco 1g IVPB Q12H - Cont. Zazctam 2gm IVPB Q8H - UA - negative, urine culture no growth - Blood - no growth at 48 hours - Wound cultures - no growth at 48 hours Hx of HTN - Norvasc 5 mg PO daily Prophylactic Care - Lovenox 40mg SC daily - Pepcid 20mg PO daily - Pt is to ambulate as tolerated Case discussed with Dr. Shayna Mckeon PGY1 <Murali Corral - Last Filed: 07/27/17 21:22> Objective - Vital Signs/Intake and Output Vital Signs (last 24 hours): Temp Pulse Resp BP Pulse Ox 98 F 78 20 140/80 97 07/20/17 15:00 07/20/17 15:00 07/20/17 15:00 07/20/17 15:00 07/20/17 15:00 - Labs Labs: 07/20/17 06:11 07/20/17 06:11 Attending/Attestation - Attestation I have personally seen and examined this patient.: Yes I have fully participated in the care of the patient.: Yes I have reviewed all pertinent clinical information, including history, physical exam and plan: Yes Notes (Text): 07/27/17 21:22 patient was seen and examined at bedside with the resident This is a late computer entry I discussed the plan of care with the resident I agree with the assessment and plan documented
[2017-07-16] MEDS: Aztreonam 2 GM in Sodium Chloride 0.9% 100 ML IVPB SCH ×3 (06:34→22:16)
[2017-07-16] MEDS: Enoxaparin 40 mg Syringe SC SCH (09:19)
[2017-07-16 11:39] LABS: BASO % 0.8 % (0.0-2.0); EOS # 0.6 K/uL (0.0-0.7); EOS % 13.1 % (0.0-4.0); HEMATOCRIT 45.7 % (35.0-51.0); LYMPH # 1.6 K/uL (1.0-4.3); LYMPH % 35.3 % (20.0-40.0); MEAN CELL VOLUME 80.8 fL (80.0-94.0); MEAN CORPUSCULAR HEMOGLOBIN 26.5 pg (27.0-31.0); MEAN CORPUSCULAR HGB CONC 32.8 g/dL (33.0-37.0); MEAN PLATELET VOLUME 8.6 fL (7.2-11.7); MONO # 0.4 K/uL (0.0-0.8); MONO % 8.6 % (0.0-10.0); NRBC % 0.1 % (0.0-2.0); RED CELL DISTRIBUTION WIDTH 14.2 % (11.5-14.5)
[2017-07-16 11:41] LABS: WHITE BLOOD COUNT 4.6 K/uL (4.8-10.8)
[2017-07-16 12:12] LABS: CHLORIDE 97 mmol/L (98-107); SODIUM 137 mmol/L (132-148)
[2017-07-16 12:13] LABS: POTASSIUM 3.8 mmol/L (3.6-5.2)
[2017-07-16 12:15] LABS: ALB/GLOB RATIO 1.2 (1.0-2.1); ALKALINE PHOSPHATASE 63 U/L (38-126); AST/SGOT 40 U/L (17-59); BILIRUBIN,TOTAL 0.5 mg/dL (0.2-1.3); BLOOD UREA NITROGEN 15 mg/dL (9-20); CARBON DIOXIDE 24 mmol/L (22-30); GFR AFRICAN-AMERICAN > 60; TOTAL PROTEIN 7.6 g/dL (6.3-8.3)
[2017-07-16 12:16] LABS: ALT/SGPT 76 U/L (21-72); CALCIUM 9.7 mg/dl (8.6-10.4); GLUCOSE,RANDOM 125 mg/dL (75-110)
[2017-07-16] MEDS: Saccharomyces Boulardi 250 mg Cap PO SCH (17:09)
--- NOTE | 2017-07-16 17:59 | CP.PCM.PN ---
<Marck Mckeon - Last Filed: 07/16/17 17:56> Subjective - Date & Time of Evaluation Date of Evaluation: 07/16/17 Time of Evaluation: 07:00 - Subjective Subjective: PGY Medicine Note for Dr. Jana Corrigan Patient seen and examined this morning at bedside. Patient was awake and in good spirits. Patient states that feel great and would like to go home. He is not having any pain in his knee currently. He states he has no complaints at this time. Denies f/c, n/v, d/c, sob, cp, headache, numbness or tingling. Objective - Vital Signs/Intake and Output Vital Signs (last 24 hours): Temp Pulse Resp BP Pulse Ox 98.2 F 57 L 20 131/81 97 07/16/17 15:00 07/16/17 15:00 07/16/17 15:00 07/16/17 15:00 07/16/17 15:00 Intake and Output: 07/16/17 07/16/17 06:59 18:59 Intake Total 470 730 Balance 470 730 - Medications Medications: Current Medications Acetaminophen (Tylenol 325mg Tab) 650 mg PO Q6 PRN PRN Reason: pain/fever Amlodipine Besylate (Norvasc) 5 mg PO DAILY [facility] Last Admin: 07/16/17 09:19 Dose: 5 mg Enoxaparin Sodium (Lovenox) 40 mg SC DAILY [facility] Last Admin: 07/16/17 09:19 Dose: 40 mg Famotidine (Pepcid) 20 mg PO DAILY [facility] Last Admin: 07/16/17 09:19 Dose: 20 mg Vancomycin HCl 1,000 mg/ (Sodium Chloride) 250 mls @ 166.6 mls/hr IVPB Q12H [facility] Last Admin: 07/16/17 11:46 Dose: 166.6 mls/hr Aztreonam 2 gm/ Sodium (Chloride) 100 mls @ 200 mls/hr IVPB Q8H [facility] Last Admin: 07/16/17 14:22 Dose: 200 mls/hr Saccharomyces Boulardii (Florastor) 250 mg PO BID [facility] Last Admin: 07/16/17 17:09 Dose: 250 mg - Labs Labs: 07/16/17 11:27 07/16/17 11:27 - Constitutional Appears: Non-toxic, No Acute Distress - Head Exam Head Exam: ATRAUMATIC, NORMOCEPHALIC - Eye Exam Eye Exam: EOMI, Normal appearance - ENT Exam ENT Exam: Mucous Membranes Moist - Respiratory Exam Respiratory Exam: Clear to Ausculation Bilateral, NORMAL BREATHING PATTERN. absent: Accessory Muscle Use, Rales, Rhonchi, Wheezes, Respiratory Distress - Cardiovascular Exam Cardiovascular Exam: REGULAR RHYTHM, +S1, +S2 - GI/Abdominal Exam GI & Abdominal Exam: Soft, Normal Bowel Sounds. absent: Distended, Firm, Guarding, Rigid, Tenderness - Extremities Exam Extremities Exam: Full ROM. absent: Calf Tenderness, Pedal Edema, Tenderness Additional comments: Blisters are decreased in size, almost non-existent. Erythema boarders are stable, have not increased nor decreased in size compared to outline boarder drawn on skin two days ago. Swelling in the left knee has decreased in size, to minimal to zero swelling. non-tender to palpation. Full ROM now compared to yesterday. - Neurological Exam Neurological Exam: Alert, Awake, Oriented x3 - Psychiatric Exam Psychiatric exam: Normal Affect, Normal Mood - Skin Skin Exam: Dry, Intact, Normal Color, Warm Assessment and Plan - Assessment and Plan (Free Text) Assessment: Cellulitis of Left Knee - improving, but erythematous boarder has not increased nor decreased. continue current treatment regiment. - Left Knee X-Ray (07/13/17): Prominent lobulated and radiopaque soft tissue densities and or lesions seen projecting over the soft tissues at the level of the patella and extending superiorly. Clinical correlation and or correlation with contrast-enhanced MRI and or soft tissue biopsy may be helpful if clinically indicated. Moderate lateral compartment joint space narrowing of the femorotibial joint space with subchondral sclerosis and osteophytosis. Spurring of the tibial spines. Mild patellofemoral compartment joint space narrowing. Small suprapatellar joint effusion. Correlation with MRI may be helpful if clinically indicated. - Ortho consulted, Dr. Francois Friend, to rule out septic joint - (07/13/17) Spoke with Dr. Francois Friend, does not believe the swelling is located within the joint. Believes this is located in the skin. Does not believe this is a septic joint. - Infectious Disease consulted, Dr. Daley - follow up recs - consider switch from IV to PO abx, will await recommendation - Cont. Vanco 1g IVPB Q12H - Cont. Zazctam 2gm IVPB Q8H - Urine culture final no growth - Blood - no growth at 3 days x 2 - Wound cultures - Final - no growth Hx of HTN - Norvasc 5 mg PO daily Prophylactic Care - Lovenox 40mg SC daily - Pepcid 20mg PO daily - Started on Florastor 250mg PO BID - Pt is to ambulate as tolerated Case discussed with Dr. Jana Mckeon PGY1 <Milad Corrigan - Last Filed: 07/16/17 20:19> Objective - Vital Signs/Intake and Output Vital Signs (last 24 hours): Temp Pulse Resp BP Pulse Ox 98.2 F 57 L 20 131/81 97 07/16/17 15:00 07/16/17 15:00 07/16/17 15:00 07/16/17 15:00 07/16/17 15:00 Intake and Output: 07/16/17 07/17/17 18:59 06:59 Intake Total 730 Balance 730 - Medications Medications: Current Medications Acetaminophen (Tylenol 325mg Tab) 650 mg PO Q6 PRN PRN Reason: pain/fever Amlodipine Besylate (Norvasc) 5 mg PO DAILY [facility] Last Admin: 07/16/17 09:19 Dose: 5 mg Enoxaparin Sodium (Lovenox) 40 mg SC DAILY [facility] Last Admin: 07/16/17 09:19 Dose: 40 mg Famotidine (Pepcid) 20 mg PO DAILY [facility] Last Admin: 07/16/17 09:19 Dose: 20 mg Vancomycin HCl 1,000 mg/ (Sodium Chloride) 250 mls @ 166.6 mls/hr IVPB Q12H [facility] Last Admin: 07/16/17 11:46 Dose: 166.6 mls/hr Aztreonam 2 gm/ Sodium (Chloride) 100 mls @ 200 mls/hr IVPB Q8H [facility] Last Admin: 07/16/17 14:22 Dose: 200 mls/hr Saccharomyces Boulardii (Florastor) 250 mg PO BID [facility] Last Admin: 07/16/17 17:09 Dose: 250 mg - Labs Labs: 07/16/17 11:27 07/16/17 11:27 Attending/Attestation - Attestation I have personally seen and examined this patient.: Yes I have fully participated in the care of the patient.: Yes I have reviewed all pertinent clinical information, including history, physical exam and plan: Yes Notes (Text): 07/16/17 20:18 Patient was seen and examined at 1:45 PM 07/16/17. Exam, assessment and plan were thoroughly gone over with the resident. Milad Corrigan D.O.
--- NOTE | 2017-07-16 19:42 | CP.PCM.PN ---
Subjective - Date & Time of Evaluation Date of Evaluation: 07/16/17 Time of Evaluation: 08:00 - Subjective Subjective: EVENTS NOTES IMPROVING SLOWLY IV RX IN PROGRESS POSSIBLE PO CLINDA ON DISCHARGE Objective - Vital Signs/Intake and Output Vital Signs (last 24 hours): Temp Pulse Resp BP Pulse Ox 98.2 F 57 L 20 131/81 97 07/16/17 15:00 07/16/17 15:00 07/16/17 15:00 07/16/17 15:00 07/16/17 15:00 Intake and Output: 07/16/17 07/17/17 18:59 06:59 Intake Total 730 Balance 730 - Medications Medications: Current Medications Acetaminophen (Tylenol 325mg Tab) 650 mg PO Q6 PRN PRN Reason: pain/fever Amlodipine Besylate (Norvasc) 5 mg PO DAILY [facility] Last Admin: 07/16/17 09:19 Dose: 5 mg Enoxaparin Sodium (Lovenox) 40 mg SC DAILY [facility] Last Admin: 07/16/17 09:19 Dose: 40 mg Famotidine (Pepcid) 20 mg PO DAILY [facility] Last Admin: 07/16/17 09:19 Dose: 20 mg Vancomycin HCl 1,000 mg/ (Sodium Chloride) 250 mls @ 166.6 mls/hr IVPB Q12H [facility] Last Admin: 07/16/17 11:46 Dose: 166.6 mls/hr Aztreonam 2 gm/ Sodium (Chloride) 100 mls @ 200 mls/hr IVPB Q8H [facility] Last Admin: 07/16/17 14:22 Dose: 200 mls/hr Saccharomyces Boulardii (Florastor) 250 mg PO BID [facility] Last Admin: 07/16/17 17:09 Dose: 250 mg - Labs Labs: 07/16/17 11:27 07/16/17 11:27 - Constitutional Appears: Non-toxic, Chronically Ill - Head Exam Head Exam: NORMOCEPHALIC - Eye Exam Eye Exam: PERRL - ENT Exam ENT Exam: Mucous Membranes Dry - Neck Exam Neck Exam: absent: Lymphadenopathy - Respiratory Exam Respiratory Exam: Decreased Breath Sounds - Cardiovascular Exam Cardiovascular Exam: REGULAR RHYTHM - GI/Abdominal Exam GI & Abdominal Exam: Distended, Diminished Bowel Sounds Assessment and Plan (1) Cellulitis of knee, left Status: Acute
[2017-07-17] MEDS: Aztreonam 2 GM in Sodium Chloride 0.9% 100 ML IVPB SCH ×3 (06:57→21:59)
[2017-07-17 07:03] LABS: BASO % 0.7 % (0.0-2.0); EOS # 0.6 K/uL (0.0-0.7); HEMATOCRIT 44.7 % (35.0-51.0); LYMPH # 1.8 K/uL (1.0-4.3); LYMPH % 36.3 % (20.0-40.0); MEAN CELL VOLUME 80.5 fL (80.0-94.0); MEAN CORPUSCULAR HEMOGLOBIN 27.4 pg (27.0-31.0); MEAN PLATELET VOLUME 8.6 fL (7.2-11.7); MONO # 0.5 K/uL (0.0-0.8); MONO % 9.3 % (0.0-10.0); NRBC % 0.1 % (0.0-2.0); WHITE BLOOD COUNT 5.1 K/uL (4.8-10.8)
[2017-07-17 07:36] LABS: CHLORIDE 99 mmol/L (98-107)
[2017-07-17 07:37] LABS: POTASSIUM 4.4 mmol/L (3.6-5.2); SODIUM 139 mmol/L (132-148)
[2017-07-17 07:40] LABS: ALB/GLOB RATIO 1.2 (1.0-2.1); ALKALINE PHOSPHATASE 55 U/L (38-126); ALT/SGPT 76 U/L (21-72); AST/SGOT 46 U/L (17-59); BILIRUBIN,TOTAL 0.5 mg/dL (0.2-1.3); BLOOD UREA NITROGEN 15 mg/dL (9-20); CALCIUM 9.8 mg/dl (8.6-10.4); CARBON DIOXIDE 26 mmol/L (22-30); GFR AFRICAN-AMERICAN > 60; GLUCOSE,RANDOM 86 mg/dL (75-110); TOTAL PROTEIN 7.4 g/dL (6.3-8.3)
[2017-07-17] MEDS: Enoxaparin 40 mg Syringe SC SCH (09:09)
[2017-07-17] MEDS: Saccharomyces Boulardi 250 mg Cap PO SCH ×2 (09:10→17:45)
--- NOTE | 2017-07-17 13:26 | CP.PCM.PN ---
Subjective - Date & Time of Evaluation Date of Evaluation: 07/17/17 Time of Evaluation: 10:00 - Subjective Subjective: DISCUSSED ON ROUNDS POSSIBLE D/C ON PO RX Objective - Vital Signs/Intake and Output Vital Signs (last 24 hours): Temp Pulse Resp BP Pulse Ox 97.8 F 61 20 131/86 98 07/17/17 07:00 07/17/17 07:00 07/17/17 07:00 07/17/17 07:00 07/17/17 07:00 - Medications Medications: Current Medications Acetaminophen (Tylenol 325mg Tab) 650 mg PO Q6 PRN PRN Reason: pain/fever Amlodipine Besylate (Norvasc) 5 mg PO DAILY [facility] Last Admin: 07/17/17 09:10 Dose: 5 mg Enoxaparin Sodium (Lovenox) 40 mg SC DAILY [facility] Last Admin: 07/17/17 09:09 Dose: 40 mg Famotidine (Pepcid) 20 mg PO DAILY [facility] Last Admin: 07/17/17 09:10 Dose: 20 mg Vancomycin HCl 1,000 mg/ (Sodium Chloride) 250 mls @ 166.6 mls/hr IVPB Q12H [facility] Last Admin: 07/17/17 12:10 Dose: 166.6 mls/hr Aztreonam 2 gm/ Sodium (Chloride) 100 mls @ 200 mls/hr IVPB Q8H [facility] Last Admin: 07/17/17 06:57 Dose: 200 mls/hr Saccharomyces Boulardii (Florastor) 250 mg PO BID [facility] Last Admin: 07/17/17 09:10 Dose: 250 mg - Labs Labs: 07/17/17 06:53 07/17/17 06:53 Assessment and Plan (1) Cellulitis of knee, left Status: Acute
--- NOTE | 2017-07-17 22:27 | CP.PCM.PN ---
<Marck Mckeon - Last Filed: 07/17/17 22:29> Subjective - Date & Time of Evaluation Date of Evaluation: 07/17/17 Time of Evaluation: 09:30 - Subjective Subjective: PGY1 Medicine Note for Dr. Ponce Patient seen and examined this morning at bedside. Patient was awake and in good spirits stating that he feels great and would like to go home. He is not having any pain in his knee anymore. He states he has no complaints at this time. Denies f/c, n/v, d/c, sob, cp, headache, numbness or tingling. Objective - Vital Signs/Intake and Output Vital Signs (last 24 hours): Temp Pulse Resp BP Pulse Ox 97.8 F 61 20 132/82 99 07/17/17 15:05 07/17/17 15:05 07/17/17 15:05 07/17/17 15:05 07/17/17 16:01 Intake and Output: 07/17/17 07/18/17 18:59 06:59 Intake Total 900 Balance 900 - Medications Medications: Current Medications Acetaminophen (Tylenol 325mg Tab) 650 mg PO Q6 PRN PRN Reason: pain/fever Amlodipine Besylate (Norvasc) 5 mg PO DAILY [facility] Last Admin: 07/17/17 09:10 Dose: 5 mg Enoxaparin Sodium (Lovenox) 40 mg SC DAILY [facility] Last Admin: 07/17/17 09:09 Dose: 40 mg Famotidine (Pepcid) 20 mg PO DAILY [facility] Last Admin: 07/17/17 09:10 Dose: 20 mg Vancomycin HCl 1,000 mg/ (Sodium Chloride) 250 mls @ 166.6 mls/hr IVPB Q12H [facility] Last Admin: 07/17/17 12:10 Dose: 166.6 mls/hr Aztreonam 2 gm/ Sodium (Chloride) 100 mls @ 200 mls/hr IVPB Q8H [facility] Last Admin: 07/17/17 21:59 Dose: 200 mls/hr Saccharomyces Boulardii (Florastor) 250 mg PO BID [facility] Last Admin: 07/17/17 17:45 Dose: 250 mg - Labs Labs: 07/17/17 06:53 07/17/17 06:53 - Constitutional Appears: Non-toxic, No Acute Distress - Head Exam Head Exam: ATRAUMATIC, NORMOCEPHALIC - Eye Exam Eye Exam: EOMI, Normal appearance - ENT Exam ENT Exam: Mucous Membranes Moist - Respiratory Exam Respiratory Exam: Clear to Ausculation Bilateral, NORMAL BREATHING PATTERN. absent: Accessory Muscle Use, Rales, Rhonchi, Wheezes, Respiratory Distress - Cardiovascular Exam Cardiovascular Exam: REGULAR RHYTHM, +S1, +S2 - GI/Abdominal Exam GI & Abdominal Exam: Soft, Normal Bowel Sounds. absent: Distended, Firm, Guarding, Rigid, Tenderness - Extremities Exam Extremities Exam: Full ROM, Joint Swelling (Left knee). absent: Calf Tenderness , Tenderness Additional comments: Blisters almost non-existent. Erythema boarders are stable, have not decreased in size compared to outline boarder drawn on skin two days ago. Swelling in the left knee has decreased in size, to minimal to zero swelling. non-tender to palpation. Full ROM now compared to yesterday. - Neurological Exam Neurological Exam: Alert, Awake, Normal Gait, Oriented x3 - Psychiatric Exam Psychiatric exam: Normal Affect, Normal Mood - Skin Skin Exam: Dry, Intact, Warm Assessment and Plan - Assessment and Plan (Free Text) Assessment: Cellulitis of Left Knee - improving, but erythematous boarder has not increased nor decreased. continue current treatment regiment. - Left Knee X-Ray (07/13/17): Prominent lobulated and radiopaque soft tissue densities and or lesions seen projecting over the soft tissues at the level of the patella and extending superiorly. Clinical correlation and or correlation with contrast-enhanced MRI and or soft tissue biopsy may be helpful if clinically indicated. Moderate lateral compartment joint space narrowing of the femorotibial joint space with subchondral sclerosis and osteophytosis. Spurring of the tibial spines. Mild patellofemoral compartment joint space narrowing. Small suprapatellar joint effusion. Correlation with MRI may be helpful if clinically indicated. - Ortho consulted, Dr. Francois Friend, to rule out septic joint - (07/13/17) Spoke with Dr. Francois Friend, does not believe the swelling is located within the joint. Believes this is located in the skin. Does not believe this is a septic joint. - Infectious Disease consulted, Dr. Daley - follow up recs - switch from IV to PO abx upon discharge. - Cont. Vanco 1g IVPB Q12H - Cont. Zazctam 2gm IVPB Q8H - Urine culture final no growth - Blood - no growth at 4 days x 2 - Wound cultures - Final - no growth Hx of HTN - Norvasc 5 mg PO daily Prophylactic Care - Lovenox 40mg SC daily - Pepcid 20mg PO daily - Started on Florastor 250mg PO BID - Pt is to ambulate as tolerated DISPO: Awaiting improvement of erythema boarders on left knee to discharge home on oral abx. Follow up Dr. Daley recommendation for outpt abx regiment. Case discussed with Dr. Henrietta Acharya Linda PGY1 <Damir Ponce - Last Filed: 07/18/17 10:16> Objective - Vital Signs/Intake and Output Vital Signs (last 24 hours): Temp Pulse Resp BP Pulse Ox 97.4 F L 87 20 138/83 97 07/18/17 08:31 07/18/17 08:31 07/18/17 08:31 07/18/17 08:31 07/18/17 08:31 Intake and Output: 07/18/17 07/18/17 06:59 18:59 Intake Total 1650 Balance 1650 - Medications Medications: Current Medications Acetaminophen (Tylenol 325mg Tab) 650 mg PO Q6 PRN PRN Reason: pain/fever Amlodipine Besylate (Norvasc) 5 mg PO DAILY [facility] Last Admin: 07/18/17 09:15 Dose: 5 mg Enoxaparin Sodium (Lovenox) 40 mg SC DAILY [facility] Last Admin: 07/18/17 09:15 Dose: 40 mg Famotidine (Pepcid) 20 mg PO DAILY [facility] Last Admin: 07/18/17 09:15 Dose: 20 mg Vancomycin HCl 1,000 mg/ (Sodium Chloride) 250 mls @ 166.6 mls/hr IVPB Q12H [facility] Last Admin: 07/17/17 22:33 Dose: 166.6 mls/hr Aztreonam 2 gm/ Sodium (Chloride) 100 mls @ 200 mls/hr IVPB Q8H [facility] Last Admin: 07/18/17 06:05 Dose: 200 mls/hr Saccharomyces Boulardii (Florastor) 250 mg PO BID [facility] Last Admin: 07/18/17 09:15 Dose: 250 mg - Labs Labs: 07/18/17 06:31 07/18/17 06:31 Attending/Attestation - Attestation I have personally seen and examined this patient.: Yes I have fully participated in the care of the patient.: Yes I have reviewed all pertinent clinical information, including history, physical exam and plan: Yes Notes (Text): Cellulitis of Left Knee - Hx of HTN
[2017-07-18] MEDS: Aztreonam 2 GM in Sodium Chloride 0.9% 100 ML IVPB SCH ×3 (06:05→22:04)
[2017-07-18 06:42] LABS: BASO # 0.1 K/uL (0.0-0.2); BASO % 1.1 % (0.0-2.0); EOS # 0.6 K/uL (0.0-0.7); EOS % 11.7 % (0.0-4.0); HEMATOCRIT 43.3 % (35.0-51.0); LYMPH % 42.3 % (20.0-40.0); MEAN CORPUSCULAR HEMOGLOBIN 27.7 pg (27.0-31.0); MEAN CORPUSCULAR HGB CONC 34.2 g/dL (33.0-37.0); MEAN PLATELET VOLUME 7.9 fL (7.2-11.7); MONO # 0.4 K/uL (0.0-0.8); MONO % 9.3 % (0.0-10.0); NRBC % 0.1 % (0.0-2.0); RED CELL DISTRIBUTION WIDTH 14.1 % (11.5-14.5); WHITE BLOOD COUNT 4.7 K/uL (4.8-10.8)
[2017-07-18 06:55] LABS: CHLORIDE 101 mmol/L (98-107); POTASSIUM 4.3 mmol/L (3.6-5.2); SODIUM 139 mmol/L (132-148)
[2017-07-18 06:57] LABS: BILIRUBIN,TOTAL 0.4 mg/dL (0.2-1.3); CARBON DIOXIDE 26 mmol/L (22-30); GFR AFRICAN-AMERICAN > 60
[2017-07-18 06:58] LABS: ALB/GLOB RATIO 1.2 (1.0-2.1); ALKALINE PHOSPHATASE 52 U/L (38-126); ALT/SGPT 92 U/L (21-72); AST/SGOT 52 U/L (17-59); BLOOD UREA NITROGEN 15 mg/dL (9-20); CALCIUM 9.8 mg/dl (8.6-10.4); GLUCOSE,RANDOM 86 mg/dL (75-110); TOTAL PROTEIN 7.1 g/dL (6.3-8.3)
[2017-07-18] MEDS: Saccharomyces Boulardi 250 mg Cap PO SCH ×2 (09:15→17:40)
[2017-07-18] MEDS: Enoxaparin 40 mg Syringe SC SCH (09:15)
[2017-07-18] MEDS: Bacitracin/Neomycin/Polymyxin Oint(30GM) TOP SCH ×2 (13:41→17:42)
[2017-07-19] MEDS: Aztreonam 2 GM in Sodium Chloride 0.9% 100 ML IVPB SCH ×3 (06:02→22:28)
[2017-07-19] MEDS: Saccharomyces Boulardi 250 mg Cap PO SCH ×2 (09:24→17:48)
[2017-07-19] MEDS: Enoxaparin 40 mg Syringe SC SCH (09:24)
[2017-07-19] MEDS: Bacitracin/Neomycin/Polymyxin Oint(30GM) TOP SCH ×3 (09:25→17:48)
--- NOTE | 2017-07-19 10:36 | CP.PCM.PN ---
<Sha Aguila - Last Filed: 07/19/17 12:01> Subjective - Date & Time of Evaluation Date of Evaluation: 07/19/17 Time of Evaluation: 07:10 - Subjective Subjective: PGY-[address] Ponce Patient seen and examined at bedside. Patient is not experiencing any pain in his knee. Patient has no acute complaints. Denies fever, chills, chest pain, dyspnea, abdominal pain, dysuria. Objective - Vital Signs/Intake and Output Vital Signs (last 24 hours): Temp Pulse Resp BP Pulse Ox 97.9 F 63 20 123/83 97 07/19/17 08:00 07/19/17 08:00 07/19/17 08:00 07/19/17 08:00 07/19/17 08:00 Intake and Output: 07/19/17 07/19/17 06:59 18:59 Intake Total 340 Balance 340 - Medications Medications: Current Medications Acetaminophen (Tylenol 325mg Tab) 650 mg PO Q6 PRN PRN Reason: pain/fever Amlodipine Besylate (Norvasc) 5 mg PO DAILY [facility] Last Admin: 07/19/17 09:24 Dose: 5 mg Enoxaparin Sodium (Lovenox) 40 mg SC DAILY [facility] Last Admin: 07/19/17 09:24 Dose: 40 mg Famotidine (Pepcid) 20 mg PO DAILY [facility] Last Admin: 07/19/17 09:24 Dose: 20 mg Vancomycin HCl 1,000 mg/ (Sodium Chloride) 250 mls @ 166.6 mls/hr IVPB Q12H [facility] Last Admin: 07/18/17 22:04 Dose: 166.6 mls/hr Aztreonam 2 gm/ Sodium (Chloride) 100 mls @ 200 mls/hr IVPB Q8H [facility] Last Admin: 07/19/17 06:02 Dose: 200 mls/hr Neomycin/Polymyxin/Bacitracin (Neosporin Triple Antibiotic Oint) 0 gm TOP TID [facility] Last Admin: 07/19/17 09:25 Dose: 1 appl Saccharomyces Boulardii (Florastor) 250 mg PO BID [facility] Last Admin: 07/19/17 09:24 Dose: 250 mg - Labs Labs: 07/18/17 06:31 07/18/17 06:31 - Constitutional Appears: No Acute Distress - Head Exam Head Exam: ATRAUMATIC, NORMOCEPHALIC - Eye Exam Eye Exam: EOMI, PERRL - ENT Exam ENT Exam: Mucous Membranes Moist - Respiratory Exam Respiratory Exam: Clear to Ausculation Bilateral. absent: Rales, Rhonchi, Wheezes - Cardiovascular Exam Cardiovascular Exam: REGULAR RHYTHM, +S1, +S2 - GI/Abdominal Exam GI & Abdominal Exam: Soft, Normal Bowel Sounds. absent: Distended, Tenderness - Extremities Exam Extremities Exam: Full ROM, Joint Swelling (left knee). absent: Calf Tenderness , Pedal Edema Additional comments: Blisters almost non-existent. Erythema boarders are stable. Swelling in the left knee minimal. non-tender to palpation. Full ROM. - Neurological Exam Neurological Exam: Alert, Awake, Oriented x3 - Psychiatric Exam Psychiatric exam: Normal Affect, Normal Mood - Skin Skin Exam: Dry, Warm Assessment and Plan - Assessment and Plan (Free Text) Plan: Cellulitis of Left Knee - improving, but erythematous boarder has not increased nor decreased. continue current treatment regiment. - Left Knee X-Ray (07/13/17): Prominent lobulated and radiopaque soft tissue densities and or lesions seen projecting over the soft tissues at the level of the patella and extending superiorly. Clinical correlation and or correlation with contrast-enhanced MRI and or soft tissue biopsy may be helpful if clinically indicated. Moderate lateral compartment joint space narrowing of the femorotibial joint space with subchondral sclerosis and osteophytosis. Spurring of the tibial spines. Mild patellofemoral compartment joint space narrowing. Small suprapatellar joint effusion. Correlation with MRI may be helpful if clinically indicated. - Ortho consulted, Dr. Francois Friend, to rule out septic joint - (07/13/17) Spoke with Dr. Francois Friend, does not believe the swelling is located within the joint. Believes this is located in the skin. Does not believe this is a septic joint. - Infectious Disease consulted, Dr. Daley - follow up recs - switch from IV to PO abx upon discharge. - Cont. Vanco 1g IVPB Q12H - Cont. Zazctam 2gm IVPB Q8H - Urine culture final no growth - Blood - no growth at 4 days x 2 - Wound cultures - Final - no growth Hx of HTN - Norvasc 5 mg PO daily Prophylactic Care - Lovenox 40mg SC daily - Pepcid 20mg PO daily - Started on Florastor 250mg PO BID - Pt is to ambulate as tolerated DISPO: Awaiting improvement of erythema boarders on left knee to discharge home on oral abx. Follow up Dr. Daley recommendation for outpt abx regiment. Case discussed with Dr. Ponce <Damir Ponce - Last Filed: 07/19/17 14:45> Objective - Vital Signs/Intake and Output Vital Signs (last 24 hours): Temp Pulse Resp BP Pulse Ox 97.9 F 63 20 123/83 97 07/19/17 08:00 07/19/17 08:00 07/19/17 08:00 07/19/17 08:00 07/19/17 08:00 Intake and Output: 07/19/17 07/19/17 06:59 18:59 Intake Total 340 Balance 340 - Medications Medications: Current Medications Acetaminophen (Tylenol 325mg Tab) 650 mg PO Q6 PRN PRN Reason: pain/fever Amlodipine Besylate (Norvasc) 5 mg PO DAILY [facility] Last Admin: 07/19/17 09:24 Dose: 5 mg Enoxaparin Sodium (Lovenox) 40 mg SC DAILY [facility] Last Admin: 07/19/17 09:24 Dose: 40 mg Famotidine (Pepcid) 20 mg PO DAILY [facility] Last Admin: 07/19/17 09:24 Dose: 20 mg Vancomycin HCl 1,000 mg/ (Sodium Chloride) 250 mls @ 166.6 mls/hr IVPB Q12H [facility] Last Admin: 07/19/17 11:34 Dose: 166.6 mls/hr Aztreonam 2 gm/ Sodium (Chloride) 100 mls @ 200 mls/hr IVPB Q8H [facility] Last Admin: 07/19/17 14:22 Dose: 200 mls/hr Neomycin/Polymyxin/Bacitracin (Neosporin Triple Antibiotic Oint) 0 gm TOP TID [facility] Last Admin: 07/19/17 14:23 Dose: 1 appl Saccharomyces Boulardii (Florastor) 250 mg PO BID [facility] Last Admin: 07/19/17 09:24 Dose: 250 mg - Labs Labs: 07/18/17 06:31 07/18/17 06:31 Attending/Attestation - Attestation I have personally seen and examined this patient.: Yes I have fully participated in the care of the patient.: Yes I have reviewed all pertinent clinical information, including history, physical exam and plan: Yes Notes (Text): Cellulitis improving not resolved
--- NOTE | 2017-07-19 10:51 | CP.PCM.PN ---
<Eddie Ragland - Last Filed: 07/19/17 10:49> Subjective - Date & Time of Evaluation Date of Evaluation: 07/18/17 Time of Evaluation: 10:49 - Subjective Subjective: Patient seen and evaluated at bedside this AM; patient can walk with no pain and says that the knee is much better. Denies fevers/chills, JOHN, CP, SOb, abdominal pain, N/V/D, dysura/freq/urg or lower extremity pain/swelling. Objective - Vital Signs/Intake and Output Vital Signs (last 24 hours): Temp Pulse Resp BP Pulse Ox 97.9 F 63 20 123/83 97 07/19/17 08:00 07/19/17 08:00 07/19/17 08:00 07/19/17 08:00 07/19/17 08:00 Intake and Output: 07/19/17 07/19/17 06:59 18:59 Intake Total 340 Balance 340 - Medications Medications: Current Medications Acetaminophen (Tylenol 325mg Tab) 650 mg PO Q6 PRN PRN Reason: pain/fever Amlodipine Besylate (Norvasc) 5 mg PO DAILY [facility] Last Admin: 07/19/17 09:24 Dose: 5 mg Enoxaparin Sodium (Lovenox) 40 mg SC DAILY [facility] Last Admin: 07/19/17 09:24 Dose: 40 mg Famotidine (Pepcid) 20 mg PO DAILY [facility] Last Admin: 07/19/17 09:24 Dose: 20 mg Vancomycin HCl 1,000 mg/ (Sodium Chloride) 250 mls @ 166.6 mls/hr IVPB Q12H [facility] Last Admin: 07/18/17 22:04 Dose: 166.6 mls/hr Aztreonam 2 gm/ Sodium (Chloride) 100 mls @ 200 mls/hr IVPB Q8H [facility] Last Admin: 07/19/17 06:02 Dose: 200 mls/hr Neomycin/Polymyxin/Bacitracin (Neosporin Triple Antibiotic Oint) 0 gm TOP TID [facility] Last Admin: 07/19/17 09:25 Dose: 1 appl Saccharomyces Boulardii (Florastor) 250 mg PO BID [facility] Last Admin: 07/19/17 09:24 Dose: 250 mg - Labs Labs: 07/18/17 06:31 07/18/17 06:31 - Constitutional Appears: Well, Non-toxic - Head Exam Head Exam: ATRAUMATIC - Eye Exam Eye Exam: EOMI - ENT Exam ENT Exam: Mucous Membranes Moist - Neck Exam Neck Exam: Full ROM. absent: Lymphadenopathy - Respiratory Exam Respiratory Exam: Clear to Ausculation Bilateral, NORMAL BREATHING PATTERN. absent: Rales, Rhonchi, Wheezes - Cardiovascular Exam Cardiovascular Exam: REGULAR RHYTHM, +S1, +S2 - GI/Abdominal Exam GI & Abdominal Exam: Soft, Normal Bowel Sounds. absent: Tenderness - Rectal Exam Rectal Exam: Deferred - Extremities Exam Extremities Exam: Full ROM. absent: Calf Tenderness Additional comments: left knee has dark stained skin from previous infection is not warm to the touch patient has full range of motion no pain on exam - Back Exam Back Exam: NORMAL INSPECTION. absent: CVA tenderness (L), CVA tenderness (R) - Neurological Exam Neurological Exam: Alert, Awake, Normal Gait, Oriented x3 - Psychiatric Exam Psychiatric exam: Normal Affect - Skin Skin Exam: Warm Assessment and Plan - Assessment and Plan (Free Text) Assessment: Cellulitis of Left Knee -resolved - Left Knee X-Ray (07/13/17): Prominent lobulated and radiopaque soft tissue densities and or lesions seen projecting over the soft tissues at the level of the patella and extending superiorly. Clinical correlation and or correlation with contrast-enhanced MRI and or soft tissue biopsy may be helpful if clinically indicated. Moderate lateral compartment joint space narrowing of the femorotibial joint space with subchondral sclerosis and osteophytosis. Spurring of the tibial spines. Mild patellofemoral compartment joint space narrowing. Small suprapatellar joint effusion. Correlation with MRI may be helpful if clinically indicated. - Ortho consulted, Dr. Francois Friend, to rule out septic joint - (07/13/17) Spoke with Dr. Francois Friend, does not believe the swelling is located within the joint. Believes this is located in the skin. Does not believe this is a septic joint. - Infectious Disease consulted, Dr. Daley - follow up recs - switch from IV to PO abx upon discharge. - Cont. Vanco 1g IVPB Q12H - Cont. Zazctam 2gm IVPB Q8H - Urine culture final no growth - Blood - no growth at 4 days x 2 - Wound cultures - Final - no growth Hx of HTN - Norvasc 5 mg PO daily Prophylactic Care - Lovenox 40mg SC daily - Pepcid 20mg PO daily - Started on Florastor 250mg PO BID - Pt is to ambulate as tolerated Case discussed with Dr. Ponce <Damir Ponce - Last Filed: 07/19/17 14:39> Objective - Vital Signs/Intake and Output Vital Signs (last 24 hours): Temp Pulse Resp BP Pulse Ox 97.9 F 63 20 123/83 97 07/19/17 08:00 07/19/17 08:00 07/19/17 08:00 07/19/17 08:00 07/19/17 08:00 Intake and Output: 07/19/17 07/19/17 06:59 18:59 Intake Total 340 Balance 340 - Medications Medications: Current Medications Acetaminophen (Tylenol 325mg Tab) 650 mg PO Q6 PRN PRN Reason: pain/fever Amlodipine Besylate (Norvasc) 5 mg PO DAILY [facility] Last Admin: 07/19/17 09:24 Dose: 5 mg Enoxaparin Sodium (Lovenox) 40 mg SC DAILY [facility] Last Admin: 07/19/17 09:24 Dose: 40 mg Famotidine (Pepcid) 20 mg PO DAILY [facility] Last Admin: 07/19/17 09:24 Dose: 20 mg Vancomycin HCl 1,000 mg/ (Sodium Chloride) 250 mls @ 166.6 mls/hr IVPB Q12H [facility] Last Admin: 07/19/17 11:34 Dose: 166.6 mls/hr Aztreonam 2 gm/ Sodium (Chloride) 100 mls @ 200 mls/hr IVPB Q8H [facility] Last Admin: 07/19/17 14:22 Dose: 200 mls/hr Neomycin/Polymyxin/Bacitracin (Neosporin Triple Antibiotic Oint) 0 gm TOP TID [facility] Last Admin: 07/19/17 14:23 Dose: 1 appl Saccharomyces Boulardii (Florastor) 250 mg PO BID [facility] Last Admin: 07/19/17 09:24 Dose: 250 mg - Labs Labs: 07/18/17 06:31 07/18/17 06:31 Attending/Attestation - Attestation I have personally seen and examined this patient.: Yes I have fully participated in the care of the patient.: Yes I have reviewed all pertinent clinical information, including history, physical exam and plan: Yes Notes (Text): Cellulitis of Left Knee -improving not resolved
--- NOTE | 2017-07-19 16:08 | CP.PCM.PN ---
Subjective - Date & Time of Evaluation Date of Evaluation: 07/19/17 Time of Evaluation: 08:00 - Subjective Subjective: cellultis improving Objective - Vital Signs/Intake and Output Vital Signs (last 24 hours): Temp Pulse Resp BP Pulse Ox 97.9 F 63 20 123/83 97 07/19/17 08:00 07/19/17 08:00 07/19/17 08:00 07/19/17 08:00 07/19/17 08:00 Intake and Output: 07/19/17 07/19/17 06:59 18:59 Intake Total 340 Balance 340 - Medications Medications: Current Medications Acetaminophen (Tylenol 325mg Tab) 650 mg PO Q6 PRN PRN Reason: pain/fever Amlodipine Besylate (Norvasc) 5 mg PO DAILY [facility] Last Admin: 07/19/17 09:24 Dose: 5 mg Enoxaparin Sodium (Lovenox) 40 mg SC DAILY [facility] Last Admin: 07/19/17 09:24 Dose: 40 mg Famotidine (Pepcid) 20 mg PO DAILY [facility] Last Admin: 07/19/17 09:24 Dose: 20 mg Vancomycin HCl 1,000 mg/ (Sodium Chloride) 250 mls @ 166.6 mls/hr IVPB Q12H [facility] Last Admin: 07/19/17 11:34 Dose: 166.6 mls/hr Aztreonam 2 gm/ Sodium (Chloride) 100 mls @ 200 mls/hr IVPB Q8H [facility] Last Admin: 07/19/17 14:22 Dose: 200 mls/hr Neomycin/Polymyxin/Bacitracin (Neosporin Triple Antibiotic Oint) 0 gm TOP TID [facility] Last Admin: 07/19/17 14:23 Dose: 1 appl Saccharomyces Boulardii (Florastor) 250 mg PO BID [facility] Last Admin: 07/19/17 09:24 Dose: 250 mg - Labs Labs: 07/18/17 06:31 07/18/17 06:31 - Constitutional Appears: Non-toxic, Chronically Ill - Head Exam Head Exam: NORMOCEPHALIC - Eye Exam Eye Exam: PERRL. absent: Scleral icterus - ENT Exam ENT Exam: Mucous Membranes Dry - Neck Exam Neck Exam: absent: Lymphadenopathy - Respiratory Exam Respiratory Exam: Decreased Breath Sounds - Cardiovascular Exam Cardiovascular Exam: REGULAR RHYTHM, +S1, +S2 - GI/Abdominal Exam GI & Abdominal Exam: Distended, Soft Assessment and Plan (1) Cellulitis of knee, left Status: Acute
[2017-07-20] MEDS: Aztreonam 2 GM in Sodium Chloride 0.9% 100 ML IVPB SCH ×2 (06:09→14:08)
[2017-07-20 06:23] LABS: EOS # 0.5 K/uL (0.0-0.7); EOS % 11.1 % (0.0-4.0); HEMATOCRIT 43.1 % (35.0-51.0); LYMPH # 1.9 K/uL (1.0-4.3); LYMPH % 39.7 % (20.0-40.0); MEAN CELL VOLUME 80.7 fL (80.0-94.0); MEAN CORPUSCULAR HEMOGLOBIN 27.7 pg (27.0-31.0); MEAN CORPUSCULAR HGB CONC 34.3 g/dL (33.0-37.0); MEAN PLATELET VOLUME 8.2 fL (7.2-11.7); MONO # 0.5 K/uL (0.0-0.8); MONO % 11.3 % (0.0-10.0); NRBC % 0.1 % (0.0-2.0); RED CELL DISTRIBUTION WIDTH 13.7 % (11.5-14.5); WHITE BLOOD COUNT 4.7 K/uL (4.8-10.8)
[2017-07-20 06:33] LABS: CHLORIDE 99 mmol/L (98-107); SODIUM 136 mmol/L (132-148)
[2017-07-20 06:34] LABS: POTASSIUM 4.7 mmol/L (3.6-5.2)
[2017-07-20 06:36] LABS: ALB/GLOB RATIO 1.4 (1.0-2.1); ALKALINE PHOSPHATASE 51 U/L (38-126); ALT/SGPT 114 U/L (21-72); AST/SGOT 63 U/L (17-59); BILIRUBIN,TOTAL 0.3 mg/dL (0.2-1.3); BLOOD UREA NITROGEN 13 mg/dL (9-20); CALCIUM 9.9 mg/dl (8.6-10.4); CARBON DIOXIDE 26 mmol/L (22-30); GFR AFRICAN-AMERICAN > 60; GLUCOSE,RANDOM 87 mg/dL (75-110); TOTAL PROTEIN 6.9 g/dL (6.3-8.3)
[2017-07-20] MEDS: Saccharomyces Boulardi 250 mg Cap PO SCH (09:35)
[2017-07-20] MEDS: Bacitracin/Neomycin/Polymyxin Oint(30GM) TOP SCH ×2 (09:35→13:17)
[2017-07-20] MEDS: Enoxaparin 40 mg Syringe SC SCH (09:35)
[2017-07-20 16:07] VITALS: BP 140/80; PULSE 78; TEMP 98; O2SAT 97
--- NOTE | 2017-07-20 18:01 | CP.PCM.DIS ---
Provider - Provider Date of Admission: 07/14/17 09:29 Attending physician: Murali Corral MD Consults: Infections Disease, Dr. Thuy Lynn, Dr. Tapia Time Spent in preparation of Discharge (in minutes): 30 Diagnosis - Discharge Diagnosis (1) Cellulitis of knee, left Status: Acute Hospital Course - Lab Results Lab Results: Micro Results 07/13/17 10:30 Blood Blood Culture - Final NO GROWTH AFTER 5 DAYS 07/13/17 10:30 Blood Gram Stain - Final TEST NOT PERFORMED 07/13/17 10:00 Blood Blood Culture - Final NO GROWTH AFTER 5 DAYS 07/13/17 10:00 Blood Gram Stain - Final TEST NOT PERFORMED 07/13/17 10:05 Knee - Left Gram Stain - Final 07/13/17 10:05 Knee - Left Wound Culture - Final No growth. 07/13/17 08:57 Urine Urine Culture - Final No Growth (<1,000 CFU/ML) Most Recent Lab Values WBC 4.7 K/uL (4.8-10.8) L 07/20/17 06:11 RBC 5.33 Mil/uL (4.40-5.90) 07/20/17 06:11 Hgb 14.8 g/dL (12.0-18.0) 07/20/17 06:11 Hct 43.1 % (35.0-51.0) 07/20/17 06:11 MCV 80.7 fL (80.0-94.0) 07/20/17 06:11 MCH 27.7 pg (27.0-31.0) 07/20/17 06:11 MCHC 34.3 g/dL (33.0-37.0) 07/20/17 06:11 RDW 13.7 % (11.5-14.5) 07/20/17 06:11 Plt Count 274 K/uL (130-400) 07/20/17 06:11 MPV 8.2 fL (7.2-11.7) 07/20/17 06:11 Neut % (Auto) 36.9 % (50.0-75.0) L 07/20/17 06:11 Lymph % (Auto) 39.7 % (20.0-40.0) 07/20/17 06:11 [place] % (Auto) 11.3 % (0.0-10.0) H 07/20/17 06:11 Eos % (Auto) 11.1 % (0.0-4.0) H 07/20/17 06:11 Baso % (Auto) 1.0 % (0.0-2.0) 07/20/17 06:11 Neut # 1.7 K/uL (1.8-7.0) L 07/20/17 06:11 Lymph # 1.9 K/uL (1.0-4.3) 07/20/17 06:11 [place] # 0.5 K/uL (0.0-0.8) 07/20/17 06:11 Eos # 0.5 K/uL (0.0-0.7) 07/20/17 06:11 Baso # 0.0 K/uL (0.0-0.2) 07/20/17 06:11 Neutrophils % (Manual) 87 % (50-75) H 07/14/17 06:01 Lymphocytes % (Manual) 12 % (20-40) L 07/14/17 06:01 Monocytes % (Manual) 1 % (0-10) 07/14/17 06:01 Platelet Estimate Normal (NORMAL) 07/14/17 06:01 RBC Morphology Normal 07/14/17 06:01 Sodium 136 mmol/L (132-148) 07/20/17 06:11 Potassium 4.7 mmol/L (3.6-5.2) 07/20/17 06:11 Chloride 99 mmol/L (98-107) 07/20/17 06:11 Carbon Dioxide 26 mmol/L (22-30) 07/20/17 06:11 Anion Gap 16 (10-20) 07/20/17 06:11 BUN 13 mg/dL (9-20) 07/20/17 06:11 Creatinine 0.8 MG/DL (0.8-1.5) 07/20/17 06:11 Est GFR ( Amer) > 60 07/20/17 06:11 Est GFR (Non-Af Amer) > 60 07/20/17 06:11 Random Glucose 87 mg/dL (75-110) 07/20/17 06:11 Calcium 9.9 mg/dl (8.6-10.4) 07/20/17 06:11 Total Bilirubin 0.3 mg/dL (0.2-1.3) 07/20/17 06:11 AST 63 U/L (17-59) H D 07/20/17 06:11 ALT 114 U/L (21-72) H D 07/20/17 06:11 Alkaline Phosphatase 51 U/L (38-126) 07/20/17 06:11 Total Protein 6.9 g/dL (6.3-8.3) 07/20/17 06:11 Albumin 4.0 g/dL (3.5-5.0) 07/20/17 06:11 Globulin 2.9 gm/dL (2.2-3.9) 07/20/17 06:11 Albumin/Globulin Ratio 1.4 (1.0-2.1) 07/20/17 06:11 Urine Color Yellow (YELLOW) 07/13/17 10:32 Urine Clarity Clear (Clear) 07/13/17 10:32 Urine pH 5.0 (5.0-8.0) 07/13/17 10:32 Ur Specific [place] 1.015 (1.003-1.030) 07/13/17 10:32 Urine Protein Negative mg/dL (NEGATIVE) 07/13/17 10:32 Urine Glucose (UA) Normal mg/dL (Normal) 07/13/17 10:32 Urine Ketones Negative mg/dL (NEGATIVE) 07/13/17 10:32 Urine Blood Negative (NEGATIVE) 07/13/17 10:32 Urine Nitrate Negative (NEGATIVE) 07/13/17 10:32 Urine Bilirubin Negative (NEGATIVE) 07/13/17 10:32 Urine Urobilinogen Normal mg/dL (0.2-1.0) 07/13/17 10:32 Ur Leukocyte Esterase Neg Hema/uL (Negative) 07/13/17 10:32 Urine WBC (Auto) < 1 /hpf (0-5) 07/13/17 10:32 Ur Squamous Epith Cells < 1 /hpf (0-5) 07/13/17 10:32 - Hospital Course Hospital Course: Per admission documentation, 61 year old male with a PMH of HTN presented to the ED with increasing swelling in his left knee over the past week. The patient states that he tripped while walked about a week ago. He states he landed on his left knee in a pile of dirt. He denied any pain or any openings on the skin. He reports over the next 3 days he started to notice some swelling and redness around his left knee. He came to the ED and was sent home with a prescription for Bactrim. He reports taking his medication as directed but the swelling and redness has worsened. He states that he started to have blisters form over his knee yesterday. He decided to come back because of the formation of the blisters. He says he does have mild pain with walking now, but is in no pain at rest. He states he has no other complaints at this time. Denies f/c, n/v, d/c, sob, cp, headaches or diaphoresis. Hospital Course Patient was admitted to the hospital for cellulitis of the left knee that failure outpt therapy. Ortho, Dr. Tapia was consulted to r/o septic joint. He did not leave a note but stated to the resident that he did not believe the swelling was located inside the joint and that he was signing off the case. Infectious disease was consulted, Dr. Daley. Left Knee X-Ray (07/13/17): Prominent lobulated and radiopaque soft tissue densities and or lesions seen projecting over the soft tissues at the level of the patella and extending superiorly. Clinical correlation and or correlation with contrast-enhanced MRI and or soft tissue biopsy may be helpful if clinically indicated. Moderate lateral compartment joint space narrowing of the femorotibial joint space with subchondral sclerosis and osteophytosis. Spurring of the tibial spines. Mild patellofemoral compartment joint space narrowing. Small suprapatellar joint effusion. Correlation with MRI may be helpful if clinically indicated. Patient was started on Vanco and Azactam due to a penicillin allergy. Patient was monitored for the next 5 days with the outline of his cellulitis closely monitored. Patient's cellulitis began to improve and blood cultures were negative x 5days. Wound cultures were negative. Patient's vital signs were stable throughout his hospital stay. Patient was discharged home on 07/20/17. Discharge Instructions Patient is to be discharged home, per Dr. Manzo. Patient is to follow up with his Primary Care Physician within one week of discharge. If the patient does not have any Primary Care Physician, he is to follow up with the neighborhood clinic located in the basement of the hospital at [facility]. If symptoms worsen or any new symptoms occur, please return to the hospital. Discharge medications, Norvasc 5mg PO daily Neosporin Triple Abx Topical Clindamycin 300mg PO QID x 5 days - Date & Time of H&P Date of H&P: 07/13/17 Time of H&P: 15:05 Discharge Exam - Head Exam Head Exam: NORMOCEPHALIC - Eye Exam Eye Exam: EOMI, Normal appearance. absent: Scleral icterus - ENT Exam ENT Exam: Mucous Membranes Moist - Neck Exam Neck exam: Full Rom - Respiratory Exam Respiratory Exam: Clear to PA & Lateral, NORMAL BREATHING PATTERN, UNREMARKABLE. absent: Accessory Muscle Use, Rales, Rhonchi, Wheezes, Respiratory Distress - Cardiovascular Exam Cardiovascular Exam: REGULAR RHYTHM, +S1, +S2 - GI/Abdominal Exam GI & Abdominal Exam: Normal Bowel Sounds, Soft. absent: Distended, Firm, Guarding, Tenderness - Extremities Exam Additional comments: left knee has improving dark stained skin from previous infection is not warm to the touch patient has full range of motion no pain on exam - Neurological Exam Neurological exam: Alert, Oriented x3 - Psychiatric Exam Psychiatric exam: Normal Affect, Normal Mood - Skin Skin Exam: Dry, Warm Discharge Plan - Discharge Medications Prescriptions: amLODIPine [Norvasc] 5 mg PO DAILY #30 tab Bacitracin/Neomycin/Polymyxin [Neosporin Triple Antibiotic Oint] 0 gm TOP TID # 1 tube Clindamycin [Cleocin] 300 mg PO QID #20 cap - Follow Up Plan Condition: STABLE Disposition: HOME/ ROUTINE Instructions: Clindamycin (By mouth), Bacitracin/Neomycin/Polymyxin B (On the skin), Amlodipine (By mouth), Cellulitis (DC) Additional Instructions: Patient is to be discharged home, per Dr. Manzo. Patient is to follow up with his Primary Care Physician within one week of discharge. If the patient does not have any Primary Care Physician, he is to follow up with the [facility] clinic located in the basement of the hospital at [facility]. If symptoms worsen or any new symptoms occur, please return to the hospital. Referrals: [facility] [Outside]
== END 2017-07-20 17:40 | disposition home or self-care (01) | DRG 278 ==
LOC: C.ER 07:54 → C.9E 10:40 → C.6T 11:20 → OBSVTOIN 07-14 09:29 → C.6T 07-16 10:57
PROVIDERS: ADMIT Hospitalist; ATTEND Internal Medicine
DX: L03.116 Cellulitis of left lower limb (principal); I10 Essential (primary) hypertension; Z79.899 Other long term (current) drug therapy

== ENCOUNTER 2017-10-05 08:35 | Day surgery (SDC) | payer SELFPAY ==
[2017-10-05 09:18] VITALS: BMI 25.1
[2017-10-05] MEDS ORDERED: Simethicone 40 mg/0.6 ml Liquid (30 ml) ONE (09:45)
[2017-10-05] MEDS ORDERED: Lactated Ringer's 500 ML IV SCH (10:15)
[2017-10-05] MEDS ORDERED: Lactated Ringer's 500 ML IV ONE (10:18)
[2017-10-05] MEDS ORDERED: Propofol 10 mg/ml Inj (20 ML) ONE ×2 (10:20)
[2017-10-05] MEDS ORDERED: Lidocaine Hydrochloride 5 ML INJ ONE (10:20)
[2017-10-05 11:48] VITALS: TEMP 97.3
[2017-10-05 11:51] VITALS: O2SAT 100
[2017-10-05 12:32] VITALS: BP 130/69; PULSE 63; RESP 14
== END 2017-10-05 12:15 | disposition home or self-care (01) ==
LOC: C.ENDO 08:35
PROVIDERS: ATTEND Internal Medicine Gastroenterology
DX: Z12.11 Encounter for screening for malignant neoplasm of colon (principal); K64.8 Other hemorrhoids
CPT/HCPCS: 45378; J2704; J7120